=== PATIENT | male | born 1960 | race Caucasian/White ===

== ENCOUNTER 2019-04-17 18:38 | Emergency (ER) | payer BC ==
[2019-04-17 19:13] VITALS: TEMP 98.9
[2019-04-17] MEDS ORDERED: SODIUM CHLORIDE 0.9% 1,000 ML IV STA (19:58)
[2019-04-17] MEDS ORDERED: MORPHINE SULFATE 4 MG/ML SYRINGE IV STA (19:58)
[2019-04-17] MEDS ORDERED: ONDANSETRON 4 MG/2 ML VIAL IVP STA (19:58)
[2019-04-17 20:30] LABS: Appearance,Urine Clear (Clear); Basophils % (A) 0 %; Bilirubin,Urine Negative (Negative); Blood,Urine Negative (Negative); Color,Urine Yellow; Eosinophils # (A) 0.1 k/uL (0-0.7); Eosinophils % (A) 1 %; Glucose,Urine (UA) Negative (Negative); HCT 37.4 % (39.0-53.0); HGB 12.7 gm/dL (13.0-17.5); Ketones,Urine 2+ (Negative); Leukocyte Esterase,Urine Negative (Negative); Lymphocytes # (A) 1.1 k/uL (1.0-4.8); Lymphocytes % (A) 10 %; MCH 30.9 pg (25.0-35.0); Mean Platelet Volume 7.6; Monocytes # (A) 1.1 k/uL (0-1.0); Monocytes % (A) 10 %; Neutrophils # (A) 8.8 k/uL (1.3-7.7); Neutrophils % (A) 77 %; Nitrite,Urine Negative (Negative); PH, Urine 5.5 (5.0-8.0); Platelet Count 252 k/uL (150-450); Protein,Urine Negative (Negative); RBC 4.11 m/uL (4.30-5.90); RDW 12.6 % (11.5-15.5); Specific Gravity,Urine 1.016 (1.001-1.035); Urobilinogen,Urine <2.0 mg/dL (<2.0); WBC 11.4 k/uL (3.8-10.6)
[2019-04-17 20:44] LABS: ALT 21 U/L (4-49); AST 21 U/L (17-59); African American GFR (CKD) >90 (>60 ml/min/1.73 sqM); Albumin 3.7 g/dL (3.5-5.0); Alkaline Phosphatase 49 U/L (38-126); Anion Gap 12 mmol/L; Blood Urea Nitrogen 19 mg/dL (9-20); Calcium 9.5 mg/dL (8.4-10.2); Carbon Dioxide 21 mmol/L (22-30); Chloride 103 mmol/L (98-107); Glucose 100 mg/dL (74-99); Non-African American GFR(CKD) >90 (>60 ml/min/1.73 sqM); Potassium 4.2 mmol/L (3.5-5.1); Sodium 136 mmol/L (137-145); Total Bilirubin 0.7 mg/dL (0.2-1.3); Total Protein 6.3 g/dL (6.3-8.2)
--- NOTE | 2019-04-17 21:09 | CT ---
EXAMINATION TYPE: CT abdomen pelvis w con DATE OF EXAM: 04/17/2019 COMPARISON: None HISTORY: lower anterior abdominal pain CT DLP: 750.8 mGycm Automated exposure control for dose reduction was used. CONTRAST: Performed with IV Contrast, patient injected with 100 mL of Isovue 300. There is minimal subsegmental atelectasis at the lung bases. Heart size is normal. There is no perica rdial effusion. Liver shows 1 cm cyst in the anterior right lobe. Bile ducts are not dilated. Gallbladder appears nor mal. Spleen is intact. There is no evidence of pancreatic mass. Stomach appears intact. There is no adrenal mass. There is slight thickening left adrenal gland consistent with hypertrophy. Kidneys show satisfactory contrast opacification. There is no hydronephrosis. Ureters are not dilated . Abdominal aorta is atheromatous. Bladder distends smoothly. There is no inguinal hernia. Prostate i s enlarged and measures 6 cm. There is no free fluid in the pelvis. There is fat stranding around the mid sigmoid colon. There are multiple sigmoid diverticula. There is some sigmoid colon wall thickening. There is no free air. There is no ascites. There is no sign of a bowel obstruction. There is degenerative moderate disc space narrowing at L4-5 L5-S1 with spurring and osteosclerosis. T here is no lumbar compression fracture. The bony pelvis is intact. There are sclerotic foci in the right acetabulum probably bone islands. IMPRESSION: There is evidence of sigmoid diverticulitis. No drainable fluid collection. Moderate lower lumbar spine spondylotic changes.
[2019-04-17] MEDS ORDERED: HYDROmorphone 1 MG/ML 1 ML SYRINGE IVP STA (21:53)
[2019-04-17] MEDS ORDERED: NALOXONE 0.4 MG/ML 1 ML VIAL IV PRN (22:11)
[2019-04-17] MEDS ORDERED: ONDANSETRON 4 MG/2 ML VIAL IVP PRN (22:11)
[2019-04-17] MEDS ORDERED: MORPHINE SULFATE 4 MG/ML SYRINGE IV PRN (22:11)
--- NOTE | 2019-04-17 22:11 | ED ---
Abdominal Pain HPI - General Chief Complaint: Abdominal Pain Stated Complaint: Abd pain Time Seen by Provider: 04/17/19 19:28 Source: patient Mode of arrival: ambulatory Limitations: no limitations - History of Present Illness Initial Comments: The patient is a 58-year-old male with past history of coronary artery disease who presents emergency room with complaint of right lower quadrant abdominal pain. States it is present for the past 4 days and is getting worse. He describes it as a sharp shooting pain which radiates from his right flank. No h istory of similar in the past. Denies any associated hematuria, dysuria or difficulty voiding. Denies diarrhea, melanotic stools or hematochezia. Does admit to constipation which started today. No history of abdominal trauma or surgeries. No fevers or chills. Denies any nausea or vomiting. He took Motrin, Aleve and Ibuprofen at home for his symptoms and denies relief. Denies any chest pain or shortness of breath. He has been eating and drinking without difficulty. There are no alleviating, precipitating or modifying factors - Related Data Home Medications Medication Instructions Recorded Confirmed Esomeprazole Magnesium [NexIUM] 20 mg PO BID 12/13/15 12/16/15 Previous Rx's Medication Instructions Recorded Amoxicillin/Potassium Clav 1 tab PO Q12HR #14 tab 04/17/19 [Augmentin 875-125 Tablet] Allergies Allergy/AdvReac Type Severity Reaction Status Date / Time No Known Allergies Allergy Verified 04/17/19 19:13 Review of Systems ROS Statement: Those systems with pertinent positive or pertinent negative responses have been documented in the HPI. ROS Other: All systems not noted in ROS Statement are negative. Past Medical History Past Medical History: Coronary Artery Disease (CAD) History of Any Multi-Drug Resistant Organisms: None Reported Past Surgical History: Adenoidectomy, Heart Catheterization With Stent, Tonsillectomy Past Anesthesia/Blood Transfusion Reactions: No Reported Reaction Date of Last Stent Placement:: 2003 Smoking Status: Former smoker Past Alcohol Use History: Occasional Past Drug Use History: None Reported - Past Family History Mother Family Medical History: No Reported History General Exam Limitations: no limitations Course Vital Signs 04/17/19 04/17/19 19:10 22:56 Temperature 98.9 F Pulse Rate 81 98 Respiratory 18 17 Rate Blood Pressure 141/85 150/98 O2 Sat by Pulse 98 98 Oximetry Medical Decision Making - Medical Decision Making Upon arrival the patient was placed into room 8. A thorough history and physical exam was performed. Profile B was established. Patient was given 4 mg of morphine for pain control and 4 mg of Zofran for nausea. I did recommend laboratory studies. White blood cell count mildly elevated at 11.4. Urinalysis shows 2+ ketones. CT of the patient's abdomen and pelvis demonstrates sigmoid diverticulitis with no drainable fluid collection. A discuss results with the patient. He does have persistent abdominal pain and therefore is given 1 mg of Dilaudid. I discussed diagnosis, differential and treatment options. I did recommend hospital admission for the patient's persistent pain. Patient originally agrees to admission I place admission orders. I then called back into the patient's room stating that he wants to go home. Discussed that I do believe he will have difficulty with pain management at home however he continues to refuse admission. The patient was given a starter pack for Tylenol threes. He was given a dose of Rocephin and Flagyl in the ER. He'll be prescribed Augmentin. He needs to follow-up with his primary care physician for further evaluation. Return to the emergency room for any new or worsening symptoms or he agrees to hospital admission. Family is at bedside and agrees with patient's decision to leave. Patient was then discharged home in stable condition - Lab Data Result diagrams: 04/17/19 19:50 04/17/19 19:50 Lab Results 04/17/19 04/17/19 04/17/19 Range/Units 19:50 19:50 19:50 WBC 11.4 H (3.8-10.6) k/uL RBC 4.11 L (4.30-5.90) m/uL Hgb 12.7 L (13.0-17.5) gm/dL Hct 37.4 L (39.0-53.0) % MCV 91.0 (80.0-100.0) fL MCH 30.9 (25.0-35.0) pg MCHC 34.0 (31.0-37.0) g/dL RDW 12.6 (11.5-15.5) % Plt Count 252 (150-450) k/uL Neutrophils % 77 % Lymphocytes % 10 % Monocytes % 10 % Eosinophils % 1 % Basophils % 0 % Neutrophils # 8.8 H (1.3-7.7) k/uL Lymphocytes # 1.1 (1.0-4.8) k/uL Monocytes # 1.1 H (0-1.0) k/uL Eosinophils # 0.1 (0-0.7) k/uL Basophils # 0.0 (0-0.2) k/uL Sodium 136 L (137-145) mmol/L Potassium 4.2 (3.5-5.1) mmol/L Chloride 103 (98-107) mmol/L Carbon Dioxide 21 L (22-30) mmol/L Anion Gap 12 mmol/L BUN 19 (9-20) mg/dL Creatinine 0.76 (0.66-1.25) mg/dL Est GFR (CKD-EPI)AfAm >90 (>60 ml/min/1.73 sqM) Est GFR (CKD-EPI)NonAf >90 (>60 ml/min/1.73 sqM) Glucose 100 H (74-99) mg/dL Plasma Lactic Acid Luis (0.7-2.0) mmol/L Calcium 9.5 (8.4-10.2) mg/dL Total Bilirubin 0.7 (0.2-1.3) mg/dL AST 21 (17-59) U/L ALT 21 (4-49) U/L Alkaline Phosphatase 49 (38-126) U/L Total Protein 6.3 (6.3-8.2) g/dL Albumin 3.7 (3.5-5.0) g/dL Lipase 81 (23-300) U/L Urine Color Yellow Urine Appearance Clear (Clear) Urine pH 5.5 (5.0-8.0) Ur Specific Wallace 1.016 (1.001-1.035) Urine Protein Negative (Negative) Urine Glucose (UA) Negative (Negative) Urine Ketones 2+ H (Negative) Urine Blood Negative (Negative) Urine Nitrite Negative (Negative) Urine Bilirubin Negative (Negative) Urine Urobilinogen <2.0 (<2.0) mg/dL Ur Leukocyte Esterase Negative (Negative) 04/17/19 Range/Units 19:50 WBC (3.8-10.6) k/uL RBC (4.30-5.90) m/uL Hgb (13.0-17.5) gm/dL Hct (39.0-53.0) % MCV (80.0-100.0) fL MCH (25.0-35.0) pg MCHC (31.0-37.0) g/dL RDW (11.5-15.5) % Plt Count (150-450) k/uL Neutrophils % % Lymphocytes % % Monocytes % % Eosinophils % % Basophils % % Neutrophils # (1.3-7.7) k/uL Lymphocytes # (1.0-4.8) k/uL Monocytes # (0-1.0) k/uL Eosinophils # (0-0.7) k/uL Basophils # (0-0.2) k/uL Sodium (137-145) mmol/L Potassium (3.5-5.1) mmol/L Chloride (98-107) mmol/L Carbon Dioxide (22-30) mmol/L Anion Gap mmol/L BUN (9-20) mg/dL Creatinine (0.66-1.25) mg/dL Est GFR (CKD-EPI)AfAm (>60 ml/min/1.73 sqM) Est GFR (CKD-EPI)NonAf (>60 ml/min/1.73 sqM) Glucose (74-99) mg/dL Plasma Lactic Acid Luis 0.8 (0.7-2.0) mmol/L Calcium (8.4-10.2) mg/dL Total Bilirubin (0.2-1.3) mg/dL AST (17-59) U/L ALT (4-49) U/L Alkaline Phosphatase (38-126) U/L Total Protein (6.3-8.2) g/dL Albumin (3.5-5.0) g/dL Lipase (23-300) U/L Urine Color Urine Appearance (Clear) Urine pH (5.0-8.0) Ur Specific Wallace (1.001-1.035) Urine Protein (Negative) Urine Glucose (UA) (Negative) Urine Ketones (Negative) Urine Blood (Negative) Urine Nitrite (Negative) Urine Bilirubin (Negative) Urine Urobilinogen (<2.0) mg/dL Ur Leukocyte Esterase (Negative) Disposition Clinical Impression: Abdominal pain, Diverticulitis Disposition: HOME SELF-CARE Condition: Serious Instructions (If sedation given, give patient instructions): Diverticulitis (ED) Additional Instructions: I recommended hospital admission. Return to the emergency department if you agree to hospitalization admission or have any new or worsening symptoms Prescriptions: Amoxicillin/Potassium Clav [Augmentin 875-125 Tablet] 1 tab PO Q12HR #14 tab Is patient prescribed a controlled substance at d/c from ED?: No Referrals: Reece Curry MD [Primary Care Provider] - 1-2 days Time of Disposition: 22:27
[2019-04-17] MEDS ORDERED: cefTRIAXone IN SWFI 1,000 MG/10 ML SYRINGE IVP STA (22:13)
[2019-04-17] MEDS ORDERED: SODIUM CHLORIDE 0.9% 1,000 ML IV SCH (22:15)
[2019-04-17] MEDS ORDERED: metroNIDAZOLE 500 MG TAB PO STA (22:24)
[2019-04-17] MEDS ORDERED: MORPHINE SULFATE 4 MG/ML SYRINGE IVP STA (22:25)
[2019-04-17] MEDS ORDERED: ACET/COD 300 MG/30 MG STARTER PACK 6 TAB BTL PO STA (22:26)
[2019-04-17] MEDS ORDERED: metroNIDAZOLE-NS PMX 500 MG in SALINE 1 100ML.BAG IVPB SCH (22:30)
[2019-04-17 22:57] VITALS: BP 150/98; PULSE 98; RESP 17
[2019-04-18] MEDS ORDERED: PANTOPRAZOLE 40 MG TABLET PO SCH (09:00)
== END 2019-04-17 22:57 | disposition home or self-care (01) ==
LOC: EC 18:38
DX: K57.32 Diverticulitis of large intestine without perforation or abscess without bleeding (principal); R11.0 Nausea; I25.10 Atherosclerotic heart disease of native coronary artery without angina pectoris; Z87.891 Personal history of nicotine dependence; Z95.5 Presence of coronary angioplasty implant and graft
CPT/HCPCS: 36415; 80053; 83605; 83690; 85025; 81003; 74177; 99284; 96374; 96375 ×3; 96361; J2270; J2405; J0696; J1170; Q9967

== ENCOUNTER → 2019-05-15 | Outpatient (CLI) | payer BC ==
--- NOTE | 2019-05-17 11:14 | CT ---
EXAMINATION TYPE: CT abdomen pelvis w con DATE OF EXAM: 05/15/2019 COMPARISON: Prior CT 04/17/2019 HISTORY: ABD PAIN CT DLP: 652 mGycm Automated exposure control for dose reduction was used. TECHNIQUE: Helical acquisition of images from the lung bases through the pelvis have been completed. CONTRAST: Performed with Oral Contrast and with IV Contrast, patient injected with 100 mL of Isovue 300. FINDINGS: There are coronary artery calcifications present. No pleural or pericardial effusion. LUNG BASES: No significant abnormality is appreciated. AORTA: No significant abnormality is appreciated. LIVER/GB: No significant interval change is appreciated. PANCREAS: No significant abnormality is seen. SPLEEN: No significant abnormality is seen. ADRENALS: No significant interval change is seen. KIDNEYS: No significant abnormality is seen. REPRODUCTIVE ORGANS: Prostate is enlarged. BOWEL: The abnormal density within the fluid adjacent to the sigmoid colon has increased in size kath ewhat and may represent phlegmon or small abscess measuring approximately 4.4 cm. Abnormality does no t appear amenable to percutaneous drainage. Diverticular changes associated with the sigmoid colon. T here is some mass effect on the left lateral posterior margin of the urinary bladder. FREE AIR: No F ree Air visible. ASCITES: None visible. PELVIC ADENOPATHY: None visualized. RETROPERITONEAL ADENOPATHY: No Retroperitoneal Adenopathy visible. URINARY BLADDER: No significant abnormality is seen. OSSEOUS STRUCTURES: No significant abnormality is seen. IMPRESSION: DIVERTICULOSIS WITH PERICOLONIC PHLEGMON OR POSSIBLE ABSCESS DESCRIBED.
== END | disposition home or self-care (01) ==
LOC: RADCTMAIN 14:56
PROVIDERS: ATTEND Family Medicine
DX: K57.30 Diverticulosis of large intestine without perforation or abscess without bleeding (principal)
CPT/HCPCS: 74177; Q9967

== ENCOUNTER 2019-05-22 15:59 | Inpatient (IN) | payer BC ==
[2019-05-22] MEDS ORDERED: ONDANSETRON 4 MG/2 ML VIAL IVP STA (17:50)
[2019-05-22] MEDS ORDERED: MORPHINE SULFATE 4 MG/ML SYRINGE IV STA (17:50)
[2019-05-22] MEDS ORDERED: SODIUM CHLORIDE 0.9% 1,000 ML IV STA ×2 (17:50)
[2019-05-22] MEDS ORDERED: KETOROLAC 30 MG/ML 1 ML VIAL IVP STA (17:50)
[2019-05-22] MEDS ORDERED: PANTOPRAZOLE 40 MG/10 ML VIAL IVP STA (17:51)
--- NOTE | 2019-05-22 17:51 | ED ---
Abdominal Pain HPI - General Chief Complaint: Abdominal Pain Stated Complaint: Bowel issues Time Seen by Provider: 05/22/19 16:25 Source: patient, RN notes reviewed, old records reviewed Mode of arrival: ambulatory Limitations: no limitations - History of Present Illness Initial Comments: This is a 4-year-old male DF for evaluation bowel pain and left lower quadrant abdominal pain secondary to known diverticular disease diverticula and sigmoid abscess. Patient presents here with intractable pain despite 1 week of outpatient antibiotics. No fevers, patient passing golf stool without difficulty. No blood glucose of weakness, just mainly complaining of severe pain no fevers again. MD Complaint: abdominal pain (RLQ) -: days(s), week(s) Location: LLQ Radiation: LLQ Migration to: LLQ Severity: moderate Severity scale (1-10): 5 Quality: cramping, stabbing, aching Consistency: constant Improves With: nothing Worsens With: nothing Context: recent antibiotic use Associated Symptoms: nausea - Related Data Home Medications Medication Instructions Recorded Confirmed Aspirin EC [Ecotrin Low Dose] 81 mg PO DAILY 05/22/19 05/22/19 Cholecalciferol [Vitamin D3 (25 1,000 unit PO DAILY 05/22/19 05/22/19 Mcg = 1000 Iu)] Ciprofloxacin HCl [Cipro] 500 mg PO Q12HR 05/22/19 05/22/19 HYDROcodone/APAP 10-325MG [[place] 1 - 2 tab PO TID PRN 05/22/19 05/22/19 10-325] Omeprazole [PriLOSEC] 20 mg PO BID 05/22/19 05/22/19 metroNIDAZOLE [Flagyl] 500 mg PO TID 05/22/19 05/22/19 Allergies Allergy/AdvReac Type Severity Reaction Status Date / Time No Known Allergies Allergy Verified 05/22/19 21:33 Review of Systems ROS Statement: Those systems with pertinent positive or pertinent negative responses have been documented in the HPI. ROS Other: All systems not noted in ROS Statement are negative. Past Medical History Past Medical History: Coronary Artery Disease (CAD) Additional Past Medical History / Comment(s): diverticulitis History of Any Multi-Drug Resistant Organisms: None Reported Past Surgical History: Adenoidectomy, Heart Catheterization With Stent, Tonsillectomy Past Anesthesia/Blood Transfusion Reactions: No Reported Reaction Date of Last Stent Placement:: 2003 Past Psychological History: No Psychological Hx Reported Smoking Status: Former smoker Past Alcohol Use History: Occasional Past Drug Use History: None Reported - Past Family History Mother Family Medical History: No Reported History General Exam Limitations: no limitations General appearance: alert, in no apparent distress Head exam: Present: atraumatic, normocephalic, normal inspection Eye exam: Present: normal appearance, PERRL, EOMI. Absent: scleral icterus, conjunctival injection, periorbital swelling ENT exam: Present: normal exam, mucous membranes moist Neck exam: Present: normal inspection. Absent: tenderness, meningismus, lymphadenopathy Respiratory exam: Present: normal lung sounds bilaterally. Absent: respiratory distress, wheezes, rales, rhonchi, stridor Cardiovascular Exam: Present: regular rate, normal rhythm, normal heart sounds. Absent: systolic murmur, diastolic murmur, rubs, gallop, clicks GI/Abdominal exam: Present: soft, tenderness (LLQ), normal bowel sounds. Absent: distended, guarding, rebound, rigid Extremities exam: Present: normal inspection, full ROM, normal capillary refill. Absent: tenderness, pedal edema, joint swelling, calf tenderness Back exam: Present: normal inspection Neurological exam: Present: alert, oriented X3, CN II-XII intact Psychiatric exam: Present: normal affect, normal mood Skin exam: Present: warm, dry, intact, normal color. Absent: rash Course Vital Signs 05/22/19 05/22/19 16:01 19:31 Temperature 97.9 F Pulse Rate 67 83 Respiratory 20 18 Rate Blood Pressure 183/91 182/99 O2 Sat by Pulse 99 100 Oximetry - Reevaluation(s) Reevaluation #1: 05/22/19 18:57 medical record is reviewed, CT evaluation prior shows abscess - Consultations Consultation #1: spoke w Dr Dickson hinkle for consult and Dr. Gresham to admit Medical Decision Making - Medical Decision Making 58 male DF for evaluation of abdominal pain and diverticulitis. Patient also has diverticular sigmoid abscess. Patient will be admitted for IV antibiotics and surgical consult - Lab Data Result diagrams: 05/22/19 16:15 05/22/19 16:15 Lab Results 05/22/19 05/22/19 Range/Units 16:15 16:15 WBC 6.4 (3.8-10.6) k/uL RBC 4.69 (4.30-5.90) m/uL Hgb 13.8 (13.0-17.5) gm/dL Hct 43.4 (39.0-53.0) % MCV 92.6 (80.0-100.0) fL MCH 29.5 (25.0-35.0) pg MCHC 31.8 (31.0-37.0) g/dL RDW 13.2 (11.5-15.5) % Plt Count 338 (150-450) k/uL Neutrophils % 62 % Lymphocytes % 25 % Monocytes % 6 % Eosinophils % 3 % Basophils % 2 % Neutrophils # 4.0 (1.3-7.7) k/uL Lymphocytes # 1.6 (1.0-4.8) k/uL Monocytes # 0.4 (0-1.0) k/uL Eosinophils # 0.2 (0-0.7) k/uL Basophils # 0.1 (0-0.2) k/uL Sodium 137 (137-145) mmol/L Potassium 5.4 H (3.5-5.1) mmol/L Chloride 100 (98-107) mmol/L Carbon Dioxide 26 (22-30) mmol/L Anion Gap 11 mmol/L BUN 10 (9-20) mg/dL Creatinine 0.76 (0.66-1.25) mg/dL Est GFR (CKD-EPI)AfAm >90 (>60 ml/min/1.73 sqM) Est GFR (CKD-EPI)NonAf >90 (>60 ml/min/1.73 sqM) Glucose 102 H (74-99) mg/dL Calcium 10.1 (8.4-10.2) mg/dL Total Bilirubin 0.5 (0.2-1.3) mg/dL AST 37 (17-59) U/L ALT 26 (4-49) U/L Alkaline Phosphatase 43 (38-126) U/L Total Protein 7.3 (6.3-8.2) g/dL Albumin 4.4 (3.5-5.0) g/dL Amylase 103 (30-110) U/L Lipase 113 (23-300) U/L - Radiology Data Radiology results: report reviewed (CT head and pelvis positive for sigmoid abs cess), image reviewed Disposition Clinical Impression: Abdominal pain, Diverticulitis, Failure of outpatient treatment, Abscess of sigmoid colon Disposition: ADMITTED IP TO THIS HOSP Condition: Fair Is patient prescribed a controlled substance at d/c from ED?: No
[2019-05-22 18:04] LABS: Basophils # (A) 0.1 k/uL (0-0.2); Basophils % (A) 2 %; Eosinophils # (A) 0.2 k/uL (0-0.7); Eosinophils % (A) 3 %; HCT 43.4 % (39.0-53.0); HGB 13.8 gm/dL (13.0-17.5); Lymphocytes # (A) 1.6 k/uL (1.0-4.8); Lymphocytes % (A) 25 %; MCH 29.5 pg (25.0-35.0); MCHC 31.8 g/dL (31.0-37.0); MCV 92.6 fL (80.0-100.0); Mean Platelet Volume 6.8; Monocytes # (A) 0.4 k/uL (0-1.0); Monocytes % (A) 6 %; Neutrophils % (A) 62 %; Platelet Count 338 k/uL (150-450); RBC 4.69 m/uL (4.30-5.90); RDW 13.2 % (11.5-15.5); WBC 6.4 k/uL (3.8-10.6)
[2019-05-22 18:14] LABS: ALT 26 U/L (4-49); AST 37 U/L (17-59); African American GFR (CKD) >90 (>60 ml/min/1.73 sqM); Albumin 4.4 g/dL (3.5-5.0); Alkaline Phosphatase 43 U/L (38-126); Amylase 103 U/L (30-110); Anion Gap 11 mmol/L; Blood Urea Nitrogen 10 mg/dL (9-20); Calcium 10.1 mg/dL (8.4-10.2); Carbon Dioxide 26 mmol/L (22-30); Chloride 100 mmol/L (98-107); Glucose 102 mg/dL (74-99); Non-African American GFR(CKD) >90 (>60 ml/min/1.73 sqM); Sodium 137 mmol/L (137-145); Total Bilirubin 0.5 mg/dL (0.2-1.3); Total Protein 7.3 g/dL (6.3-8.2)
[2019-05-22 18:29] LABS: Potassium 5.4 mmol/L (3.5-5.1)
[2019-05-22] MEDS ORDERED: ONDANSETRON 4 MG/2 ML VIAL IVP PRN (18:53)
[2019-05-22] MEDS ORDERED: AMPICILLIN-SULBACTAM 3 GM in SODIUM CHLORIDE 0.9% 100 ML IVPB STA (18:55)
--- NOTE | 2019-05-22 19:39 | CT ---
EXAMINATION TYPE: CT abdomen pelvis w con DATE OF EXAM: 05/22/2019 COMPARISON: 05/15/2019 HISTORY: History of diverticulitis with abscess. CT DLP: 730.2 mGycm Automated exposure control for dose reduction was used. CONTRAST: Performed with IV Contrast, patient injected with 100 mL of Isovue 300. Multiple axial sections were obtained from the diaphragm to the floor the pelvis with intravenous con trast Isovue 100 mL. FINDINGS: Lung bases are clear. There is no pleural effusion. Heart size is normal. There is 1 cm cyst anterior right lobe of the liver. Gallbladder appears normal. Bile ducts are not dilated. Spleen stomach panc reas appear normal. There is no adrenal mass. Kidneys show satisfactory contrast opacification. There is no hydronephrosis. Ureters are not dilated. There is no retroperitoneal adenopathy. Abdominal aor ta is atheromatous. There are multiple loops of large bowel with fluid levels. There is fat stranding and mixed density mass posterior to the mid sigmoid colon that measures 4.2 cm and consistent with peridiverticular abscess. There are multiple sigmoid diverticula. Prostate is en larged. There is no inguinal hernia. Bladder distends smoothly. There is 5 mm anterior subluxation of L3 in relation to L4. There is narrowing of L4-5 and L5-S1 disc spaces. There is no compression fracture. Sacroiliac joints are intact. Bony pelvis is intact. IMPRESSION: Inflammatory mass in the pelvis on the left side consistent with peridiverticular abscess not changed in size compared to exam 7 days ago. Numerous large bowel fluid levels consistent with ileus and maria d rrhea.
[2019-05-22] MEDS: MORPHINE SULFATE 4 MG/ML SYRINGE IVP PRN (21:00)
[2019-05-22] MEDS: LISINOPRIL-HCTZ 10-12.5 MG 1 EACH TAB PO SCH (22:43)
[2019-05-23] MEDS: MORPHINE SULFATE 4 MG/ML SYRINGE IVP PRN ×4 (00:42→18:02)
[2019-05-23] MEDS: AMPICILLIN-SULBACTAM 3 GM in SODIUM CHLORIDE 0.9% 100 ML IVPB SCH ×4 (04:16→16:21)
[2019-05-23] MEDS: PANTOPRAZOLE 40 MG/10 ML VIAL IVP SCH (08:10)
[2019-05-23] MEDS: LISINOPRIL-HCTZ 10-12.5 MG 1 EACH TAB PO SCH ×2 (08:10→16:21)
--- NOTE | 2019-05-23 09:59 | P.GSCN ---
History of Present Illness Consult date: 05/23/19 History of present illness: 58-year-old male presents to the emergency department after he was informed by his primary care physician. He has been dealing with abdominal pain since April 17 and has had a diagnosis of diverticulitis. Initially, he was treated with an outpatient antibiotic and did have worsening pain. At that point, he did have a CT of the abdomen and pelvis that was concerning for a phlegmon in the left lower quadrant. His antibiotics were changed at that time and he was continued to be treated as an outpatient. Due to concern of continued pain, the patient was referred to the emergency department. In the emergency department, the patient was noted not to have any leukocytosis or tachycardia. CT of the abdomen and pelvis was performed that did show an evolution of the phlegmon into a 4 cm abscess. Currently, the patient does have some discomfort in the suprapubic region and left lower quadrant. He is not showing signs of peritonitis. He denies any fevers, chills, chest pain or shortness of breath. He denies any nausea or vomiting. He has been on a regular diet as an outpatient. Review of Systems All systems: negative Past Medical History Past Medical History: Coronary Artery Disease (CAD) Additional Past Medical History / Comment(s): diverticulitis History of Any Multi-Drug Resistant Organisms: None Reported Past Surgical History: Adenoidectomy, Heart Catheterization With Stent, Tonsillectomy Past Anesthesia/Blood Transfusion Reactions: No Reported Reaction Date of Last Stent Placement:: 2003 Past Psychological History: No Psychological Hx Reported Smoking Status: Former smoker Past Alcohol Use History: Occasional Past Drug Use History: None Reported - Past Family History Mother Family Medical History: No Reported History Medications and Allergies Home Medications Medication Instructions Recorded Confirmed Type Aspirin EC [Ecotrin Low Dose] 81 mg PO DAILY 05/22/19 05/22/19 History Cholecalciferol [Vitamin D3 (25 1,000 unit PO DAILY 05/22/19 05/22/19 History Mcg = 1000 Iu)] Ciprofloxacin HCl [Cipro] 500 mg PO Q12HR 05/22/19 05/22/19 History HYDROcodone/APAP 10-325MG [[place] 1 - 2 tab PO TID PRN 05/22/19 05/22/19 History 10-325] Omeprazole [PriLOSEC] 20 mg PO BID 05/22/19 05/22/19 History metroNIDAZOLE [Flagyl] 500 mg PO TID 05/22/19 05/22/19 History Allergies Allergy/AdvReac Type Severity Reaction Status Date / Time No Known Allergies Allergy Verified 05/22/19 21:33 Surgical - Exam Osteopathic Statement: *. No significant issues noted on an osteopathic structural exam other than those noted in the History and Physical/Consult. Vital Signs Temp Pulse Resp BP Pulse Ox 97.9 F 67 20 183/91 99 05/22/19 16:01 05/22/19 16:01 05/22/19 16:01 05/22/19 16:05/22/19 16:01 - General well nourished, no distress - Eyes PERRL - ENT normal mucosa, no hearing loss - Neck trachea midline - Respiratory normal respiratory effort - Abdomen Soft, some tenderness to palpation in the left lower quadrant, nondistended, no rebound, no guarding, no peritoneal signs - Psychiatric oriented to time, oriented to person, oriented to place Results - Labs 05/22/19 16:15 05/22/19 16:15 Abnormal Lab Results - Last 24 Hours (Table) 05/22/19 Range/Units 16:15 Potassium 5.4 H (3.5-5.1) mmol/L Glucose 102 H (74-99) mg/dL Diabetes panel 05/22/19 Range/Units 16:15 Sodium 137 (137-145) mmol/L Potassium 5.4 H (3.5-5.1) mmol/L Chloride 100 (98-107) mmol/L Carbon Dioxide 26 (22-30) mmol/L BUN 10 (9-20) mg/dL Creatinine 0.76 (0.66-1.25) mg/dL Glucose 102 H (74-99) mg/dL Calcium 10.1 (8.4-10.2) mg/dL AST 37 (17-59) U/L ALT 26 (4-49) U/L Alkaline Phosphatase 43 (38-126) U/L Total Protein 7.3 (6.3-8.2) g/dL Albumin 4.4 (3.5-5.0) g/dL Calcium panel 05/22/19 Range/Units 16:15 Calcium 10.1 (8.4-10.2) mg/dL Albumin 4.4 (3.5-5.0) g/dL Pituitary panel 05/22/19 Range/Units 16:15 Sodium 137 (137-145) mmol/L Potassium 5.4 H (3.5-5.1) mmol/L Chloride 100 (98-107) mmol/L Carbon Dioxide 26 (22-30) mmol/L BUN 10 (9-20) mg/dL Creatinine 0.76 (0.66-1.25) mg/dL Glucose 102 H (74-99) mg/dL Calcium 10.1 (8.4-10.2) mg/dL Adrenal panel 05/22/19 Range/Units 16:15 Sodium 137 (137-145) mmol/L Potassium 5.4 H (3.5-5.1) mmol/L Chloride 100 (98-107) mmol/L Carbon Dioxide 26 (22-30) mmol/L BUN 10 (9-20) mg/dL Creatinine 0.76 (0.66-1.25) mg/dL Glucose 102 H (74-99) mg/dL Calcium 10.1 (8.4-10.2) mg/dL Total Bilirubin 0.5 (0.2-1.3) mg/dL AST 37 (17-59) U/L ALT 26 (4-49) U/L Alkaline Phosphatase 43 (38-126) U/L Total Protein 7.3 (6.3-8.2) g/dL Albumin 4.4 (3.5-5.0) g/dL - Imaging CT scan - abdomen: report reviewed, image reviewed CT scan - pelvis: report reviewed, image reviewed (4 cm abscess noted) Assessment and Plan (1) Abscess of sigmoid colon Narrative/Plan: 58-year-old male with intra-abdominal abscess, likely secondary to d iverticulitis episode. The abscess is measured at 4 cm. I had a long discussion with the patient about the treatment modalities that could be offered. He currently is not showing any signs of peritonitis or sepsis. Due to the size of 4 cm, the patient could be a candidate for IR drainage or IV a ntibiotics for treatment. I will place a consult for IR evaluation for possibility of drainage of the abscess. There is also consult in place for infectious disease for IV antibiotics. If the patient does begin to clinically deteriorate, we will consider surgery with a Campo's procedure. The patient has voiced that he would like to avoid ostomy creation as much as possible. This is reasonable based on the patient's current clinical status. We will continue to follow the patient and provide recommendations based on his progress. Current Visit: Yes Status: Acute Code(s): K63.0 - ABSCESS OF INTESTINE SNOMED Code(s): 987683391
--- NOTE | 2019-05-23 17:02 | P.HPIM ---
History of Present Illness H&P Date: 05/23/19 Chief Complaint: Abdominal pain History of present complaint: This is a pleasant 58-year-old patient of Dr. Hope. Chronic stable medical conditions include coronary artery disease with stent in 2003, GERD, hiatal hernia. Around [place] time patient presented to the hospital with increasing abdominal pain. Computed tomography scan done did show sigmoid diverticulitis. Patient discharged on 1 week course of Augmentin. Symptoms didn't improve. But never went away. For last 10 days patient. Has been becoming significantly worse. Patient went to see his family doctor and was put on ciprofloxacin and Flagyl. Pain progressed to get worse. Also developed some nausea. No fever or chills. Some diarrhea. Decided to present to the ER. Repeat computed tomogr aphy scan is not showing peridiverticular abscess and associated ileus. Patient had some diarrhea the last few days. Admitted for the same. Review of systems: GEN.: Tired EYES: None HEENT: None NECK: None RESPIRATORY: None CARDIOVASCULAR: None GASTROINTESTINAL: As above GENITOURINARY: None MUSCULOSKELETAL: None LYMPHATICS: None HEMATOLOGICAL: None PSYCHIATRY: None NEUROLOGICAL: None. 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 . Family history: Reviewed, noncontributory to presentation Physical examination: VITAL SIGNS: 98.9, 81, 18, 141/85, 98% room air GENERAL: BMI 22.6, laying in bed not in distress. EYES: Pupils equal. Conjunctiva normal. HEENT: External appearance of nose and ears normal, oral cavity grossly normal. NECK: JVD not raised; masses not palpable. HEART: First and second heart sounds are normal; no edema. LUNGS: Respiratory rate normal; clear to auscultation. ABDOMEN: Soft, left lower quadrant tenderness, no guarding or rigidity liver spleen not palpable, no masses palpable. PSYCH: Alert and oriented x3; mood and affect normal. NEUROLOGICAL: Cranial nerves grossly intact; no facial asymmetry, power and sensation grossly intact. LYMPHATICS: No lymph nodes palpable in the axilla and neck INVESTIGATIONS, reviewed in the clinical context: White count 6.4 hemoglobin 13.8 potassium 5.4 bun 10 creatinine 0.76 Computed tomography scan abdomen-shows peridiverticular abscess Assessment: -Acute left peridiverticular abscess from diverticulitis status feel outpatient treatment, with no free a reported. Abdominal examination does show any guarding or rigidity. -Coronary artery disease with stent in 2039 -GERD -Hiatal hernia -Hyperkalemia Plan: Patient be put on a clear liquid diet. IV fluids. We will repeat electrolytes in the potassium. Lovenox for DVT prophylaxis. We'll see patient's abscess can begin went to a radiology. Otherwise patient will need IV antibiotics and may have to return for surgery down the road depending on the clinical course and findings. This was discussed at length with Dr. Forman earlier today and with the patient. Infectious disease also consulted. Past Medical History Past Medical History: Coronary Artery Disease (CAD) Additional Past Medical History / Comment(s): diverticulitis History of Any Multi-Drug Resistant Organisms: None Reported Past Surgical History: Adenoidectomy, Heart Catheterization With Stent, Tonsillectomy Past Anesthesia/Blood Transfusion Reactions: No Reported Reaction Date of Last Stent Placement:: 2003 Past Psychological History: No Psychological Hx Reported Smoking Status: Former smoker Past Alcohol Use History: Occasional Past Drug Use History: None Reported - Past Family History Mother Family Medical History: No Reported History Medications and Allergies Home Medications Medication Instructions Recorded Confirmed Type Aspirin EC [Ecotrin Low Dose] 81 mg PO DAILY 05/22/19 05/22/19 History Cholecalciferol [Vitamin D3 (25 1,000 unit PO DAILY 05/22/19 05/22/19 History Mcg = 1000 Iu)] Ciprofloxacin HCl [Cipro] 500 mg PO Q12HR 05/22/19 05/22/19 History HYDROcodone/APAP 10-325MG [[place] 1 - 2 tab PO TID PRN 05/22/19 05/22/19 History 10-325] Omeprazole [PriLOSEC] 20 mg PO BID 05/22/19 05/22/19 History metroNIDAZOLE [Flagyl] 500 mg PO TID 05/22/19 05/22/19 History Allergies Allergy/AdvReac Type Severity Reaction Status Date / Time No Known Allergies Allergy Verified 05/22/19 21:33 Physical Exam Vitals: Vital Signs Temp Pulse Pulse Resp BP BP Pulse Ox 05/23/19 08:30 68 16 05/23/19 07:00 97.7 F 68 16 131/78 98 05/23/19 00:45 98.4 F 68 16 155/70 98 05/22/19 22:10 150/90 05/22/19 22:03 174/104 05/22/19 20:56 170/80 05/22/19 20:46 97.8 F 61 16 99 05/22/19 19:31 83 18 182/99 100 05/22/19 16:01 97.9 F 67 20 183/91 99 Intake and Output 05/22/19 05/23/19 05/23/19 22:59 06:59 14:59 Intake Total 800 Output Total 200 Balance 600 Intake: Intake, IV Titration 800 Amount Sodium Chloride 0.9% 1, 800 000 ml @ 100 mls/hr IV . Q10H [facility] Rx#:[id number] Output: Urine 200 Other: # Voids 1 2 1 Weight 65.544 kg Results CBC & Chem 7: 05/22/19 16:15 05/22/19 16:15 Labs: Abnormal Lab Results - Last 24 Hours (Table) 05/22/19 Range/Units 16:15 Potassium 5.4 H (3.5-5.1) mmol/L Glucose 102 H (74-99) mg/dL Thrombosis Risk Factor Assmnt - Choose All That Apply Any of the Below Risk Factors Present?: No Other Risk Factors: Yes Each Risk Factor Represents 2 Points: Age 61-74 years Other congenital or acquired thrombophilia - If yes, enter type in comment: No Thrombosis Risk Factor Assessment Total Risk Factor Score: 2 Thrombosis Risk Factor Assessment Level: Low Risk
[2019-05-23 18:25] LABS: African American GFR (CKD) >90 (>60 ml/min/1.73 sqM); Anion Gap 5 mmol/L; Blood Urea Nitrogen 6 mg/dL (9-20); Calcium 8.4 mg/dL (8.4-10.2); Carbon Dioxide 27 mmol/L (22-30); Chloride 103 mmol/L (98-107); Glucose 75 mg/dL (74-99); Non-African American GFR(CKD) >90 (>60 ml/min/1.73 sqM); Potassium 4.1 mmol/L (3.5-5.1); Sodium 135 mmol/L (137-145)
[2019-05-23] MEDS: LACTATED RINGERS 1,000 ML IV SCH (19:57)
[2019-05-23] MEDS ORDERED: ACETAMINOPHEN TAB 325 MG TAB PO PRN (20:24)
[2019-05-24] MEDS: AMPICILLIN-SULBACTAM 3 GM in SODIUM CHLORIDE 0.9% 100 ML IVPB SCH ×5 (00:21→23:27)
[2019-05-24] MEDS: MORPHINE SULFATE 4 MG/ML SYRINGE IVP PRN ×5 (00:22→22:17)
[2019-05-24] MEDS: LACTATED RINGERS 1,000 ML IV SCH ×3 (05:50→18:16)
[2019-05-24 06:53] LABS: Basophils % (A) 0 %; Eosinophils # (A) 0.2 k/uL (0-0.7); Eosinophils % (A) 3 %; HCT 38.8 % (39.0-53.0); HGB 12.3 gm/dL (13.0-17.5); Lymphocytes # (A) 1.1 k/uL (1.0-4.8); Lymphocytes % (A) 19 %; MCH 29.3 pg (25.0-35.0); MCHC 31.8 g/dL (31.0-37.0); MCV 92.1 fL (80.0-100.0); Mean Platelet Volume 6.7; Monocytes # (A) 0.5 k/uL (0-1.0); Monocytes % (A) 8 %; Neutrophils % (A) 69 %; Platelet Count 330 k/uL (150-450); RBC 4.21 m/uL (4.30-5.90); RDW 12.8 % (11.5-15.5); WBC 5.9 k/uL (3.8-10.6)
[2019-05-24 07:38] LABS: ALT 18 U/L (4-49); AST 20 U/L (17-59); African American GFR (CKD) >90 (>60 ml/min/1.73 sqM); Albumin 2.7 g/dL (3.5-5.0); Alkaline Phosphatase 30 U/L (38-126); Anion Gap 6 mmol/L; Blood Urea Nitrogen 5 mg/dL (9-20); C Reactive Protein 9.6 mg/L (<10.0); Calcium 8.3 mg/dL (8.4-10.2); Carbon Dioxide 26 mmol/L (22-30); Chloride 105 mmol/L (98-107); Glucose 85 mg/dL (74-99); Non-African American GFR(CKD) >90 (>60 ml/min/1.73 sqM); Potassium 4.4 mmol/L (3.5-5.1); Sodium 137 mmol/L (137-145); Total Bilirubin 0.4 mg/dL (0.2-1.3)
--- NOTE | 2019-05-24 08:44 | P.PN ---
Subjective Progress Note Date: 05/24/19 Patient seen and examined at bedside. No acute events. Denies nausea or vomiting. Denies any significant changes in abdominal pain. Objective - Vital Signs Vital signs: Vital Signs Temp 98.4 F 05/24/19 07:56 Pulse 71 05/24/19 07:56 Resp 18 05/24/19 07:56 BP 161/92 05/24/19 07:56 Pulse Ox 95 05/24/19 07:56 Intake & Output 05/23/19 05/24/19 05/24/19 18:59 06:59 18:59 Intake Total 600 1000 Output Total 200 350 Balance 400 650 Intake: Intake, IV Titration 100 1000 Amount Ampicillin-Sulbactam 3 gm 100 In Sodium Chloride 0.9% 100 ml @ 200 mls/hr IVPB Q6H [facility] Rx#:[id number] Ampicillin-Sulbactam 3 gm 100 In Sodium Chloride 0.9% 100 ml @ 200 mls/hr IVPB Q8H [facility] Rx#:[id number] Lactated Ringers 1,000 ml 900 @ 100 mls/hr IV .Q10H [facility] Rx#:[id number] Oral 500 Output: Urine 200 350 Other: Voiding Method Toilet # Voids 1 1 - Constitutional General appearance: Present: cooperative, no acute distress - Respiratory Details: No difficulty with respiration - Gastrointestinal Gastrointestinal Comment(s): Soft, mild tenderness to suprapubic and left lower quadrant, nondistended, no rebound, no guarding - Psychiatric Psychiatric: Present: A&O x's 3 - Labs CBC & Chem 7: 05/24/19 06:15 05/24/19 06:15 Labs: Abnormal Lab Results - Last 24 Hours (Table) 05/23/19 05/24/19 05/24/19 Range/Units 17:33 06:15 06:15 RBC 4.21 L (4.30-5.90) m/uL Hgb 12.3 L (13.0-17.5) gm/dL Hct 38.8 L (39.0-53.0) % Sodium 135 L (137-145) mmol/L BUN 6 L 5 L (9-20) mg/dL Calcium 8.3 L (8.4-10.2) mg/dL Alkaline Phosphatase 30 L (38-126) U/L Total Protein 5.0 L (6.3-8.2) g/dL Albumin 2.7 L (3.5-5.0) g/dL Microbiology - Last 24 Hours (Table) 05/22/19 18:05 Blood Culture - Preliminary Blood No Growth after 24 hours Assessment and Plan (1) Abscess of sigmoid colon Narrative/Plan: 05/23 58-year-old male with intra-abdominal abscess, likely secondary to diverticulitis episode. The abscess is measured at 4 cm. I had a long discussion with the patient about the treatment modalities that could be offered. He currently is not showing any signs of peritonitis or sepsis. Due to the size of 4 cm, the patient could be a candidate for IR drainage or IV antibiotics for treatment. I will place a consult for IR evaluation for possibility of drainage of the abscess. There is also consult in place for infectious disease for IV antibiotics. If the patient does begin to clinically deteriorate, we will consider surgery with a Campo's procedure. The patient has voiced that he would like to avoid ostomy creation as much as possible. This is reasonable based on the patient's current clinical status. We will continue to follow the patient and provide recommendations based on his progre ss. 05/24 Case was discussed in depth with the patient's admitting physician and infectious disease. We are waiting IR recommendations on candidacy for IR drainage. Patient may for IV antibiotics. ID is following closely. Okay for full liquid diet today. Current Visit: Yes Status: Acute Code(s): K63.0 - ABSCESS OF INTESTINE SNOMED Code(s): 296770548
--- NOTE | 2019-05-24 09:21 | CONS ---
CONSULTATION DATE OF SERVICE: 05/23/2019 REASON FOR CONSULTATION: Abdominal abscess. HISTORY OF PRESENT ILLNESS: The patient is a 58-year-old male apparently started having some problem with left lower abdominal pain around April 17. The patient said he was seen in the ER and has been diagnosed with diverticulitis and he was treated with a week course of oral Augmentin. Apparently the patient did have overall improvement in his symptoms and subsequently did not have any specific instruction afterwards. About a week ago, the patient started having a pain in the left lower abdominal area again. The patient described the pain to be dull aching to sharp with intensity that has progressively gotten worse over the next few days to almost 10 out of 10 with some associated nausea but no vomiting and did have diarrhea but no blood or mucus in the stools. With persistent symptoms, the patient did present to the hospital. On arrival to the ER, the patient was afebrile. The patient's white count was normal. The patient did have a CT of abdomen and pelvis completed which did show inflammatory mostly in the pelvis on the left side consistent with peridiverticular abscess. completed 7 days ago. Numerous large bowel fluid loops consistent with ileus and diarrhea. The patient has been admitted to the hospital and was started on Unasyn 3 g q.8 hours. Infectious Disease was consulted for further recommendations regarding antibiotic therapy. REVIEW OF SYSTEMS: Positive points have been mentioned in the HPI. The rest of the systems are negative. PAST MEDICAL HISTORY: Coronary artery disease, gastroesophageal reflux disease, diverticulitis, hiatal hernia. PAST SURGICAL HISTORY: Past surgical history of adenoidectomy, PTCA with stent, and tonsillectomy. SOCIAL HISTORY: Remote history of smoking. Occasionally drinks. No drug use. FAMILY HISTORY: No pertinent findings noticed. ALLERGIES: No known drug allergies. MEDICATIONS: The patient is currently on Unasyn 3 g q.8 hours, he is on Zestoretic, lactated Ringers, morphine sulfate, Zofran, Protonix, and Tylenol. PHYSICAL EXAMINATION: Blood pressure 137/86, pulse of 72, temperature 97.7. He is 97% on room air. General description is a middle-aged male lying in bed in no distress. No tachypnea or respiration muscles of accessory use. HEENT: Shows no pallor or scleral icterus. Oral mucosa membranes dry. No pharyngeal erythema or thrush. NECK: Trachea central. No thyromegaly. LUNGS: Unlabored breathing. Clear to auscultation anteriorly. No wheeze or crackles. HEART S1, S2. Regular rate and rhythm. ABDOMEN: Soft, mildly tender. No guarding. No rigidity. No organomegaly. EXTREMITIES: No edema of the feet. SKIN examination: No rash or mass palpable. NEUROLOGICAL: Patient is awake, alert, oriented times three. Mood and affect normal. LABS: Hemoglobin is 13.8, white count 6.4, BUN of 6, creatinine 0.75. DIAGNOSTIC IMPRESSION AND PLAN: Patient with abdominal pain in this patient who did have an episode of diverticulitis for the last month that has not resolved with oral Augmentin or Cipro and Flagyl. Now developing of an abscess likely from enteric gram-negative both aerobes and anaerobes. PLAN: 1. Await CT-guided aspirate of the fluid collection, which should be sent for culture to guide further antibiotic therapy. 2. We will adjust dose of Unasyn to 3 g q.6 hours. 3. We will follow up on clinical condition and culture to further adjust medication if needed. 4. Family at the bedside. Their questions and concerns were answered. MMODL / IJN: [id number] /
[2019-05-24] MEDS: PANTOPRAZOLE 40 MG/10 ML VIAL IVP SCH (09:41)
--- NOTE | 2019-05-24 11:09 | P.PN ---
Subjective 58-year-old male admitted for that related to some diverticular abscess and patient is presently on Zosyn and was severely was consulted for the perc utaneous drain placement for his small diverticular abscess patient is much better although he is constipated patient was started on Toradol to avoid morphine. Constitutional: Denied any fatigue denied any fever. Cardio vascular: denied any chest pain, palpitations Gastrointestinal denied any nausea vomiting Pulmonary: Denied any shortness of breath cough Neurologic denied any new focal deficits All inpatient medications were reviewed and appropriate changes in these medications as dictated in the interval history and assessment and plan. Objective - Vital Signs Vital signs: Vital Signs Temp 98.4 F 05/24/19 07:56 Pulse 71 05/24/19 07:56 Resp 18 05/24/19 07:56 BP 161/92 05/24/19 07:56 Pulse Ox 95 05/24/19 07:56 Intake & Output 05/23/19 05/24/19 05/24/19 18:59 06:59 18:59 Intake Total 600 1000 640 Output Total 200 350 Balance 400 650 640 Intake: Intake, IV Titration 100 1000 Amount Ampicillin-Sulbactam 3 gm 100 In Sodium Chloride 0.9% 100 ml @ 200 mls/hr IVPB Q6H [facility] Rx#:[id number] Ampicillin-Sulbactam 3 gm 100 In Sodium Chloride 0.9% 100 ml @ 200 mls/hr IVPB Q8H [facility] Rx#:[id number] Lactated Ringers 1,000 ml 900 @ 100 mls/hr IV .Q10H [facility] Rx#:[id number] Oral 500 640 Output: Urine 200 350 Other: Voiding Method Toilet # Voids 1 1 - Exam PHYSICAL EXAMINATION: GENERAL: The patient is alert and oriented x3, not in any acute distress. Well developed, well nourished. HEENT: Pupils are round and equally reacting to light. EOMI. No scleral icterus. No conjunctival pallor. Normocephalic, atraumatic. No pharyngeal erythema. No thyromegaly. CARDIOVASCULAR: S1 and S2 present. No murmurs, rubs, or gallops. PULMONARY: Chest is clear to auscultation, no wheezing or crackles. ABDOMEN: Soft, minimal tenderness in the left lower quadrant, nondistended, normoactive bowel sounds. No palpable organomegaly. MUSCULOSKELETAL: No joint swelling or deformity. EXTREMITIES: No cyanosis, clubbing, or pedal edema. NEUROLOGICAL: Gross neurological examination did not reveal any focal deficits. SKIN: No rashes. - Labs CBC & Chem 7: 05/24/19 06:15 05/24/19 06:15 Labs: Abnormal Lab Results - Last 24 Hours (Table) 05/23/19 05/24/19 05/24/19 Range/Units 17:33 06:15 06:15 RBC 4.21 L (4.30-5.90) m/uL Hgb 12.3 L (13.0-17.5) gm/dL Hct 38.8 L (39.0-53.0) % Sodium 135 L (137-145) mmol/L BUN 6 L 5 L (9-20) mg/dL Calcium 8.3 L (8.4-10.2) mg/dL Alkaline Phosphatase 30 L (38-126) U/L Total Protein 5.0 L (6.3-8.2) g/dL Albumin 2.7 L (3.5-5.0) g/dL Microbiology - Last 24 Hours (Table) 05/22/19 18:05 Blood Culture - Preliminary Blood No Growth after 24 hours Assessment and Plan Plan: -Diverticullitis with the diverticular abscess: Possible percutaneous drainage continue with the Unasyn -Coronary artery disease Gastroesophageal reflux disease -Hyperkalemia which resolved
[2019-05-24] MEDS: LISINOPRIL-HCTZ 10-12.5 MG 1 EACH TAB PO SCH (11:36)
[2019-05-24] MEDS: KETOROLAC 30 MG/ML 1 ML VIAL IVP PRN (13:15)
[2019-05-25] MEDS: KETOROLAC 30 MG/ML 1 ML VIAL IVP PRN (01:14)
[2019-05-25] MEDS: LACTATED RINGERS 1,000 ML IV SCH (04:01)
[2019-05-25] MEDS: MORPHINE SULFATE 4 MG/ML SYRINGE IVP PRN ×3 (04:01→13:46)
[2019-05-25] MEDS: AMPICILLIN-SULBACTAM 3 GM in SODIUM CHLORIDE 0.9% 100 ML IVPB SCH ×2 (05:34→12:45)
[2019-05-25] MEDS: PANTOPRAZOLE 40 MG/10 ML VIAL IVP SCH (07:34)
[2019-05-25] MEDS ORDERED: LISINOPRIL 20 MG TAB PO SCH (09:00)
--- NOTE | 2019-05-25 10:33 | PN ---
PROGRESS NOTE DATE OF SERVICE: 05/24/2019 REASON FOR FOLLOWUP: Abdominal abscess from perforated sigmoid diverticulitis. INTERVAL HISTORY: The patient is currently afebrile. The patient has been breathing comfortably. The patient denies any chest pain, shortness of breath or cough. No nausea, vomiting and abdominal pain is currently controlled with pain medication. PHYSICAL EXAMINATION: Blood pressure 167/90 with a pulse of 76, temperature 98.5. He is 100% on room air. General description is a middle-aged male lying in bed in no distress. Respiratory system: Unlabored breathing. Clear to auscultation anteriorly. Heart S1, S2. Regular rate and rhythm. Abdomen soft. No tenderness. No guarding. No rigidity. Extremities: No edema of the feet. LABS: Hemoglobin is 12.7, white count 5.9, BUN of 5, creatinine 0.75. Blood culture has been negative so far. DIAGNOSTIC IMPRESSION AND PLAN: Patient with acute recurrent diverticulitis with concern for a small abscess awaiting CT-guided drainage of the same. The patient is covered with Unasyn to continue adjusting the antibiotic based on the culture report. Continue supportive care. MMODL / IJN: [id number] /
--- NOTE | 2019-05-25 14:28 | P.PN ---
Subjective Progress Note Date: 05/25/19 Patient seen and examined at bedside. No acute events. Abdominal pain unchanged. Objective - Vital Signs Vital signs: Vital Signs Temp 97.8 F 05/25/19 07:00 Pulse 63 05/25/19 08:00 Resp 18 05/25/19 08:00 BP 169/90 05/25/19 07:00 Pulse Ox 96 05/25/19 07:00 Intake & Output 05/24/19 05/25/19 05/25/19 18:59 06:59 18:59 Intake Total 990 296 Output Total 350 Balance 640 296 Intake: Oral 990 296 Output: Urine 350 Other: Voiding Method Toilet Toilet Toilet # Voids 1 1 1 # Bowel Movements 0 - Constitutional General appearance: Present: cooperative, no acute distress - Gastrointestinal Gastrointestinal Comment(s): Soft, left lower quadrant and suprapubic tenderness, nondistended, no rebound, no guarding - Psychiatric Psychiatric: Present: A&O x's 3 - Labs CBC & Chem 7: 05/24/19 06:15 05/24/19 06:15 Labs: Microbiology - Last 24 Hours (Table) 05/22/19 18:05 Blood Culture - Preliminary Blood No Growth after 48 hours Assessment and Plan (1) Abscess of sigmoid colon Narrative/Plan: 05/23 58-year-old male with intra-abdominal abscess, likely secondary to diverticulitis episode. The abscess is measured at 4 cm. I had a long discussion with the patient about the treatment modalities that could be offered. He currently is not showing any signs of peritonitis or sepsis. Due to the size of 4 cm, the patient could be a candidate for IR drainage or IV antibiotics for treatment. I will place a consult for IR evaluation for possibility of drainage of the abscess. There is also consult in place for infectious disease for IV antibiotics. If the patient does begin to clinically deteriorate, we will consider surgery with a Campo's procedure. The patient has voiced that he would like to avoid ostomy creation as much as possible. This is reasonable based on the patient's current clinical status. We will continue to follow the patient and provide recommendations based on his progres s. 05/24 Case was discussed in depth with the patient's admitting physician and infectious disease. We are waiting IR recommendations on candidacy for IR drainage. Patient may for IV antibiotics. ID is following closely. Okay for full liquid diet today. 2/3 Nursing did inform me that there is no plan for IR drainage based on interventional radiologist evaluation. Infectious disease to plan outpatient IV antibiotics. Patient will likely require future sigmoid colectomy, however will need IV antibiotics prior to any intervention. He is to follow-up as an outpatient for surgical planning in the future. Current Visit: Yes Status: Acute Code(s): K63.0 - ABSCESS OF INTESTINE SNOMED Code(s): 398042662
[2019-05-25 15:10] VITALS: BP 138/81; PULSE 71; RESP 16; TEMP 97.4
--- NOTE | 2019-05-25 20:27 | PN ---
PROGRESS NOTE DATE OF SERVICE: 05/25/2019 REASON FOR FOLLOWUP: Sigmoid diverticulitis with abscess. INTERVAL HISTORY: The patient was seen on rounds this morning. The patient has been afebrile, has been breathing comfortably. The patient's abdominal pain has improved, controlled with pain medication. No nausea, vomiting or diarrhea. PHYSICAL EXAMINATION: Blood pressure is 138/81 with a pulse of 71, temperature 97.4. He is 96% on room air. General description is a middle-aged male lying in bed in no distress. RESPIRATORY SYSTEM: Unlabored breathing. Clear to auscultation anteriorly. HEART: S1, S2. Regular rate and rhythm. ABDOMEN: Soft. No tenderness. LABS/IMAGING: No new labs have been obtained today. CT was reviewed with the radiologist. Abscess was not amenable to CT-guided drainage. DIAGNOSTIC IMPRESSION AND PLAN: Patient with acute sigmoid diverticulitis, failing outpatient oral antibiotic, with a component of abscess. The patient's antibiotic has been adjusted to Rocephin 2 grams daily and oral Flagyl 500 mg p.o. q.8 hours. Continue for 2 weeks with plan for a CT of abdomen and pelvis before stopping his antibiotics. His questions and concerns were answered. MMODL / IJN: [id number] /
--- NOTE | 2019-05-26 08:53 | P.DS ---
Providers Date of admission: 05/22/19 18:54 Expected date of discharge: 05/26/19 Attending physician: Kurt Dyson Consults: 05/22/19 20:16 Consult Physician Routine Consulting Provider: Mercedes Forman Consult Reason/Comments: TicItis Do you want consulting provider notified?: Yes 05/23/19 09:49 Consult Physician Routine Consulting Provider: Rick Werner Consult Reason/Comments: intra-abdominal abscess Do you want consulting provider notified?: Yes Primary care physician: Risa [facility] Course: Final diagnosis -Diverticullitis with the diverticular abscess -Coronary artery disease -Gastroesophageal reflux disease -Hyperkalemia Discharge disposition Patient is being discharged in stable condition with guarded prognosis to home and will continue with IV antibiotic therapy in the outpatient setting. Patient will also follow-up with Dr. Forman in 1-2 weeks. Total time taken is 35 minutes. History of present illness 58-year-old male admitted for that related to some diverticular abscess and patient is presently on Zosyn and surgery was consulted for the percutaneous drain placement for his small diverticular abscess patient is much better althou gh he is constipated patient was started on Toradol to avoid morphine. 05/25/2019 Patient was seen by interventional radiology and was told that the possible diverticular abscess may not need draining and should continue on antibiotics via IV in the outpatient setting and follow-up with surgery in 2-3 weeks for reevaluation. Infectious disease was following. A midline was scheduled and patient was placed on Rocephin 2 g daily. Patient will continue this course for at least 2 weeks in the outpatient setting. Case management arranged for home infusions in the outpatient setting. Patient will follow-up with Dr. Forman in 2-3 weeks as discussed. Patient states that he would really like to go home today. Currently patient's condition is stable and is ready for discharge today. Patient denies any chest pain, shortness of breath, or palpitations. Patient is afebrile. Patient denies any nausea or vomiting and is tolerating diet. Discussed with the patient about slowly advancing diet as tolerated over the next few days. Patient continues to have some mild abdominal discomfort and has been taking [place] with relief. On exam vital signs are stable. Temp is 97.4F, pulse is 71, respirations are 16, blood pressure is 138/81, oxygen saturation is 96% on room air. Cardio S1, S2 are present. Respiratory system is clear to auscultation. Abdomen is soft with mild tenderness noted. Nervous system shows no focal deficits. Please refer to medication reconciliation sheet for list of medications. Patient Condition at Discharge: Fair Plan - Discharge Summary Discharge Rx Participant: Yes New Discharge Prescriptions: New Pantoprazole [Protonix] 40 mg PO DAILY 30 Days #30 tablet. Lisinopril [Zestril] 20 mg PO DAILY 30 Days #30 tab metroNIDAZOLE [Flagyl] 500 mg PO TID #42 tab cefTRIAXone [Rocephin] 2,000 mg IVP Q24HR #14 vial HYDROcodone/APAP 10-325MG [[place] 10-325] 1 tab PO Q4HR PRN 3 Days #18 tab PRN Reason: Pain Continue Omeprazole [PriLOSEC] 20 mg PO BID Cholecalciferol [Vitamin D3 (25 Mcg = 1000 Iu)] 1,000 unit PO DAILY Discontinued Aspirin EC [Ecotrin Low Dose] 81 mg PO DAILY metroNIDAZOLE [Flagyl] 500 mg PO TID HYDROcodone/APAP 10-325MG [[place] 10-325] 1 - 2 tab PO TID PRN PRN Reason: Pain Ciprofloxacin HCl [Cipro] 500 mg PO Q12HR Discharge Medication List Cholecalciferol [Vitamin D3 (25 Mcg = 1000 Iu)] 1,000 unit PO DAILY 05/22/19 [History] Omeprazole [PriLOSEC] 20 mg PO BID 05/22/19 [History] HYDROcodone/APAP 10-325MG [[place] 10-325] 1 tab PO Q4HR PRN 3 Days #18 tab 05/25/19 [Rx] Lisinopril [Zestril] 20 mg PO DAILY 30 Days #30 tab 05/25/19 [Rx] Pantoprazole [Protonix] 40 mg PO DAILY 30 Days #30 tablet. 05/25/19 [Rx] cefTRIAXone [Rocephin] 2,000 mg IVP Q24HR #14 vial 05/25/19 [Rx] metroNIDAZOLE [Flagyl] 500 mg PO TID #42 tab 05/25/19 [Rx] Follow up Appointment(s)/Referral(s): Risa Baltazar DO [Primary Care Provider] - 05/27/19 2:40 pm [facility], [NON-STAFF] - [facility],Infusion [NON-STAFF] - Mercedes Forman DO [Doctor of Osteopathic Medicine] - 06/01/19 11:30 am Rick Werner MD [STAFF PHYSICIAN] - 1 Week Activity/Diet/Wound Care/Special Instructions: Activity Limited until follow-up Continue with antibiotics as discussed with infectious disease Follow-up with primary care provider upon discharge Follow-up with surgery as discussed and scheduled Continue current diet [facility] will deliver IV supplies by noon on 05/26/2019. [facility] will visit after that to initiate teaching and first dose of IV antibiotics. Both companies should call you to confirm. Discharge Disposition: HOME WITH HOME HEALTH SERVICES
[2019-05-26] MEDS ORDERED: PANTOPRAZOLE 40 MG TABLET PO SCH (09:00)
== END 2019-05-25 17:35 | disposition home health service (06) | DRG 392 ==
LOC: EC 15:59 → 4SSUR 18:54
PROVIDERS: ADMIT Hospitalist; ATTEND Hospitalist
PROC: 05HC33Z Insertion of Infusion Device into Left Basilic Vein, Percutaneous Approach (ICD-10-PCS; principal; 2019-05-25 13:50)
DX: K57.20 Diverticulitis of large intestine with perforation and abscess without bleeding (principal); K21.9 Gastro-esophageal reflux disease without esophagitis; I25.10 Atherosclerotic heart disease of native coronary artery without angina pectoris; E87.5 Hyperkalemia; K44.9 Diaphragmatic hernia without obstruction or gangrene; Z79.82 Long term (current) use of aspirin; Z87.891 Personal history of nicotine dependence; Z95.5 Presence of coronary angioplasty implant and graft
CPT/HCPCS: 36410; 36415; 74177; 76937; 80048; 80053; 82150; 83690; 85025; 86140; 87040; 96361; 96365; 96375; 99285

== ENCOUNTER → 2019-06-08 | Outpatient (CLI) | payer BC ==
--- NOTE | 2019-06-08 19:18 | CT ---
EXAMINATION TYPE: CT abdomen pelvis w con DATE OF EXAM: 06/08/2019 COMPARISON: 05/22/2019 HISTORY: diverticulitis, abd abcess followup CT DLP: 602 mGycm Automated exposure control for dose reduction was used. CONTRAST: Performed with IV Contrast, patient injected with 100 mL of Isovue 300. Multiple axial sections were obtained from the diaphragm to the floor the pelvis with oral and intrav enous contrast. Lung bases are clear. There is no pleural effusion. Heart size is normal. There is 1 cm cyst anterior right lobe of the liver. Spleen is normal. There is no pancreatic mass. Gallbladder appears normal. The bile ducts are not dilated. The stomach appears normal. There is no adrenal mass. Kidneys show satisfactory contrast opacification. There is no hydronephrosi s. There is normal contrast opacification of the small bowel. There are numerous sigmoid diverticula. Th ere is mild wall thickening of the sigmoid colon. There is 3 cm irregular fluid collection adjacent t o the mid sigmoid colon consistent with peridiverticular abscess. There is no sign of free air. Bladd er distends smoothly. There is no inguinal hernia. Lumbar vertebra have fairly normal alignment. Ther e is a minimal degenerative first-degree L3-4 spondylolisthesis. There is no compression fracture. Th ere is narrowing and vacuum disc and osteosclerosis at L4-5 and L5-S1. Impression there is peridiverticular abscess at the mid sigmoid colon not changed in size compared to last exam. There is decrease in the small bowel distention compared to last exam.
== END | disposition home or self-care (01) ==
LOC: RADCTMAIN 16:43
PROVIDERS: ATTEND Internal Medicine Infectious Disease
DX: K63.0 Abscess of intestine (principal); K63.89 Other specified diseases of intestine
CPT/HCPCS: 74177; Q9967

== ENCOUNTER 2019-07-06 10:21 | Inpatient (IN) | payer BC ==
[2019-07-06] MEDS ORDERED: SODIUM CHLORIDE 0.9% 1,000 ML IV STA (10:30)
[2019-07-06] MEDS ORDERED: ONDANSETRON 4 MG/2 ML VIAL IVP STA (10:48)
[2019-07-06] MEDS ORDERED: HYDROmorphone 0.5 MG/0.5 ML SYRINGE IVP STA (10:48)
[2019-07-06 10:55] LABS: Basophils # (A) 0.1 k/uL (0-0.2); Basophils % (A) 1 %; Eosinophils # (A) 0.1 k/uL (0-0.7); Eosinophils % (A) 2 %; HGB 14.9 gm/dL (13.0-17.5); Lymphocytes # (A) 1.2 k/uL (1.0-4.8); Lymphocytes % (A) 32 %; MCH 28.9 pg (25.0-35.0); MCHC 31.7 g/dL (31.0-37.0); MCV 91.2 fL (80.0-100.0); Mean Platelet Volume 7.3; Monocytes # (A) 0.3 k/uL (0-1.0); Monocytes % (A) 9 %; Neutrophils % (A) 54 %; Platelet Count 274 k/uL (150-450); RBC 5.16 m/uL (4.30-5.90); RDW 13.7 % (11.5-15.5); WBC 3.6 k/uL (3.8-10.6)
[2019-07-06 10:57] LABS: Appearance,Urine Clear (Clear); Bilirubin,Urine Negative (Negative); Blood,Urine Negative (Negative); Color,Urine Light Yellow; Glucose,Urine (UA) Negative (Negative); Ketones,Urine Negative (Negative); Leukocyte Esterase,Urine Negative (Negative); Nitrite,Urine Negative (Negative); PH, Urine 6.5 (5.0-8.0); Protein,Urine Negative (Negative); Specific Gravity,Urine 1.006 (1.001-1.035); Urobilinogen,Urine <2.0 mg/dL (<2.0)
[2019-07-06 11:08] LABS: ALT 27 U/L (4-49); AST 30 U/L (17-59); African American GFR (CKD) >90 (>60 ml/min/1.73 sqM); Albumin 4.5 g/dL (3.5-5.0); Alkaline Phosphatase 43 U/L (38-126); Amylase 116 U/L (30-110); Anion Gap 8 mmol/L; Blood Urea Nitrogen 17 mg/dL (9-20); Carbon Dioxide 28 mmol/L (22-30); Chloride 100 mmol/L (98-107); Glucose 97 mg/dL (74-99); Non-African American GFR(CKD) >90 (>60 ml/min/1.73 sqM); Potassium 4.1 mmol/L (3.5-5.1); Sodium 136 mmol/L (137-145); Total Bilirubin 0.3 mg/dL (0.2-1.3)
--- NOTE | 2019-07-06 11:34 | CT ---
EXAMINATION TYPE: CT abdomen pelvis w con DATE OF EXAM: 07/06/2019 COMPARISON: 06/08/2019 HISTORY: Lower abdominal pain, history of recent diverticulitis and abscess CT DLP: 642.9 mGycm Automated exposure control for dose reduction was used. CONTRAST: CT scan of the abdomen pelvis is performed with IV Contrast, patient injected with 100 mL of Isovue 3 00. FINDINGS- LUNG BASES- No significant abnormality is appreciated. LIVER/GB-there are 2 small hypodensities within the liver too small to characterize but stable and th erefore likely related to cysts. Trace amount of fluid is seen adjacent to the liver.. PANCREAS- No gross abnormality is seen. SPLEEN- No gross abnormality is seen. ADRENALS- No gross abnormality is seen. KIDNEYS/BLADDER- no hydronephrosis nephrolithiasis or renal mass. BOWEL-there is abnormal rotation of the mesentery. There is mesenteric edema. 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 There are few dilated fluid-filled bowel loops. Correlate clinic ally for ischemic bowel. Diverticulosis is seen in the pelvis. Small amount of free fluid is seen in the pelvis.. Density along the medial margin of the liver on axial image 21 may represent a nondisten ded portion of the bowel or stomach. Peptic ulcer disease or gastritis not excluded LYMPH NODES- No greater than 1cm abdominal or pelvic lymph nodes areappreciated. OSSEOUS STRUCTURES-hypertrophic and degenerative change of the spine. Grade 1 anterolisthesis L3 on L 4.. Arthropathy of the hips noted. Sclerosis involving the acetabulum is nonspecific. Multilevel luis l stenosis noted. OTHER- prostate is markedly enlarged correlate for PSA. A prostate nodule suggested. There remains a fluid collection in the left lower pelvis similar in size the previous exam measuring 2.5 cm compati ble with a peridiverticular abscess. No significant interval change in size. IMPRESSION- 1. There is twisting of the mesenteric pedicle and mesenteric edema highly suggestive of mesenteric v olvulus. Ischemic bowel in the differential diagnosis. There are number of fluid-filled small bowel l oops and there is a small amount of free fluid in the abdomen and pelvis. 2. Stable left pelvic peridiverticular abscess measuring 2.5 cm. 3. Correlate with PSA for prostate enlargement and prostate nodule. Prostate malignancy in the differ ential diagnosis. 4. Diverticulosis. There is abnormal attenuation along the medial margin of the liver which may repre sent nondistended portions of bowel or stomach. Correlate clinically to exclude gastritis or peptic u lcer disease
[2019-07-06] MEDS ORDERED: HYDROmorphone 0.5 MG/0.5 ML SYRINGE IVP PRN (12:10)
[2019-07-06] MEDS ORDERED: NALOXONE 0.4 MG/ML 1 ML VIAL IV PRN ×2 (12:10→17:42)
[2019-07-06] MEDS ORDERED: ONDANSETRON 4 MG/2 ML VIAL IVP PRN (12:10)
--- NOTE | 2019-07-06 12:10 | ED ---
Abdominal Pain HPI - General Chief Complaint: Abdominal Pain Stated Complaint: lower abd pain Time Seen by Provider: 07/06/19 10:27 Source: patient Mode of arrival: ambulatory Limitations: no limitations - History of Present Illness Initial Comments: 59-year-old male presents emergency department for increasing abdominal pain. Patient states that he's been dealing with diverticulitis with abscess. They have been treating with IV antibiotics. He states he stopped last week pain increased on Saturday until today. Patient was advised to come to him by his surgeon and infectious disease physician. Patient denies any fevers chills patient states his abdominal exam essentially normal he does this is increase in lower abdominal pain. No chest pain or shortness breath - Related Data Home Medications Medication Instructions Recorded Confirmed Cholecalciferol [Vitamin D3 (25 1,000 unit PO DAILY 05/22/19 05/22/19 Mcg = 1000 Iu)] Omeprazole [PriLOSEC] 20 mg PO BID 05/22/19 05/22/19 Previous Rx's Medication Instructions Recorded HYDROcodone/APAP 10-325MG [[place] 1 tab PO Q4HR PRN 3 Days #18 tab 05/25/19 10-325] Lisinopril [Zestril] 20 mg PO DAILY 30 Days #30 tab 05/25/19 Pantoprazole [Protonix] 40 mg PO DAILY 30 Days #30 05/25/19 tablet. cefTRIAXone [Rocephin] 2,000 mg IVP Q24HR #14 vial 05/25/19 metroNIDAZOLE [Flagyl] 500 mg PO TID #42 tab 05/25/19 Allergies Allergy/AdvReac Type Severity Reaction Status Date / Time No Known Allergies Allergy Verified 07/06/19 10:22 Review of Systems ROS Statement: Those systems with pertinent positive or pertinent negative responses have been documented in the HPI. ROS Other: All systems not noted in ROS Statement are negative. Past Medical History Past Medical History: Coronary Artery Disease (CAD) Additional Past Medical History / Comment(s): diverticulitis History of Any Multi-Drug Resistant Organisms: None Reported Past Surgical History: Adenoidectomy, Heart Catheterization With Stent, Tonsillectomy Past Anesthesia/Blood Transfusion Reactions: No Reported Reaction Date of Last Stent Placement:: 2003 Past Psychological History: No Psychological Hx Reported Smoking Status: Former smoker Past Alcohol Use History: Occasional Past Drug Use History: None Reported - Past Family History Mother Family Medical History: No Reported History General Exam Limitations: no limitations General appearance: alert, in no apparent distress Head exam: Present: atraumatic, normocephalic, normal inspection Respiratory exam: Present: normal lung sounds bilaterally. Absent: respiratory distress, wheezes, rales, rhonchi, stridor Cardiovascular Exam: Present: regular rate, normal rhythm, normal heart sounds. Absent: systolic murmur, diastolic murmur, rubs, gallop, clicks GI/Abdominal exam: Present: soft, distended, tenderness, guarding, normal bowel sounds. Absent: rebound, rigid Back exam: Absent: CVA tenderness (R), CVA tenderness (L) Course Vital Signs 07/06/19 10:22 Temperature 97.4 F L Pulse Rate 75 Respiratory 18 Rate Blood Pressure 173/87 O2 Sat by Pulse 98 Oximetry Medical Decision Making - Medical Decision Making Case discussed with Dr. Forman patient will be admitted. Patient be continued on antibiotics at this time. - Lab Data Result diagrams: 07/06/19 10:40 07/06/19 10:40 Lab Results 07/06/19 07/06/19 07/06/19 Range/Units 10:40 10:40 10:40 WBC 3.6 L (3.8-10.6) k/uL RBC 5.16 (4.30-5.90) m/uL Hgb 14.9 (13.0-17.5) gm/dL Hct 47.0 (39.0-53.0) % MCV 91.2 (80.0-100.0) fL MCH 28.9 (25.0-35.0) pg MCHC 31.7 (31.0-37.0) g/dL RDW 13.7 (11.5-15.5) % Plt Count 274 (150-450) k/uL Neutrophils % 54 % Lymphocytes % 32 % Monocytes % 9 % Eosinophils % 2 % Basophils % 1 % Neutrophils # 2.0 (1.3-7.7) k/uL Lymphocytes # 1.2 (1.0-4.8) k/uL Monocytes # 0.3 (0-1.0) k/uL Eosinophils # 0.1 (0-0.7) k/uL Basophils # 0.1 (0-0.2) k/uL Sodium 136 L (137-145) mmol/L Potassium 4.1 (3.5-5.1) mmol/L Chloride 100 (98-107) mmol/L Carbon Dioxide 28 (22-30) mmol/L Anion Gap 8 mmol/L BUN 17 (9-20) mg/dL Creatinine 0.86 (0.66-1.25) mg/dL Est GFR (CKD-EPI)AfAm >90 (>60 ml/min/1.73 sqM) Est GFR (CKD-EPI)NonAf >90 (>60 ml/min/1.73 sqM) Glucose 97 (74-99) mg/dL Plasma Lactic Acid Luis (0.7-2.0) mmol/L Calcium 9.0 (8.4-10.2) mg/dL Total Bilirubin 0.3 (0.2-1.3) mg/dL AST 30 (17-59) U/L ALT 27 (4-49) U/L Alkaline Phosphatase 43 (38-126) U/L Total Protein 7.0 (6.3-8.2) g/dL Albumin 4.5 (3.5-5.0) g/dL Amylase 116 H (30-110) U/L Lipase 148 (23-300) U/L Urine Color Light Yellow Urine Appearance Clear (Clear) Urine pH 6.5 (5.0-8.0) Ur Specific [place] 1.006 (1.001-1.035) Urine Protein Negative (Negative) Urine Glucose (UA) Negative (Negative) Urine Ketones Negative (Negative) Urine Blood Negative (Negative) Urine Nitrite Negative (Negative) Urine Bilirubin Negative (Negative) Urine Urobilinogen <2.0 (<2.0) mg/dL Ur Leukocyte Esterase Negative (Negative) 07/06/19 Range/Units 10:40 WBC (3.8-10.6) k/uL RBC (4.30-5.90) m/uL Hgb (13.0-17.5) gm/dL Hct (39.0-53.0) % MCV (80.0-100.0) fL MCH (25.0-35.0) pg MCHC (31.0-37.0) g/dL RDW (11.5-15.5) % Plt Count (150-450) k/uL Neutrophils % % Lymphocytes % % Monocytes % % Eosinophils % % Basophils % % Neutrophils # (1.3-7.7) k/uL Lymphocytes # (1.0-4.8) k/uL Monocytes # (0-1.0) k/uL Eosinophils # (0-0.7) k/uL Basophils # (0-0.2) k/uL Sodium (137-145) mmol/L Potassium (3.5-5.1) mmol/L Chloride (98-107) mmol/L Carbon Dioxide (22-30) mmol/L Anion Gap mmol/L BUN (9-20) mg/dL Creatinine (0.66-1.25) mg/dL Est GFR (CKD-EPI)AfAm (>60 ml/min/1.73 sqM) Est GFR (CKD-EPI)NonAf (>60 ml/min/1.73 sqM) Glucose (74-99) mg/dL Plasma Lactic Acid Luis 1.2 (0.7-2.0) mmol/L Calcium (8.4-10.2) mg/dL Total Bilirubin (0.2-1.3) mg/dL AST (17-59) U/L ALT (4-49) U/L Alkaline Phosphatase (38-126) U/L Total Protein (6.3-8.2) g/dL Albumin (3.5-5.0) g/dL Amylase (30-110) U/L Lipase (23-300) U/L Urine Color Urine Appearance (Clear) Urine pH (5.0-8.0) Ur Specific [place] (1.001-1.035) Urine Protein (Negative) Urine Glucose (UA) (Negative) Urine Ketones (Negative) Urine Blood (Negative) Urine Nitrite (Negative) Urine Bilirubin (Negative) Urine Urobilinogen (<2.0) mg/dL Ur Leukocyte Esterase (Negative) Disposition Clinical Impression: Abdominal pain, Volvulus, Abscess of sigmoid colon, Diverticulitis Disposition: ADMITTED IP TO THIS [facility] Condition: Fair Referrals: Risa Baltazar DO [Primary Care Provider] - 1-2 days
[2019-07-06] MEDS ORDERED: PIPERACILLIN-TAZOBACTAM 3.375 GM in SODIUM CHLORIDE 0.9% 100 ML IVPB STA (12:21)
[2019-07-06] MEDS: SODIUM CHLORIDE 0.9% 1,000 ML IV SCH ×2 (12:40→21:40)
[2019-07-06] MEDS: HYDROmorphone 1 MG/ML 1 ML SYRINGE IVP PRN ×2 (12:47→15:04)
[2019-07-06] MEDS ORDERED: IV FLUID CONTINUATION 1,000 ML IV ONE (15:46)
[2019-07-06] MEDS ORDERED: ONDANSETRON 4 MG/2 ML VIAL IVP ONE (16:07)
[2019-07-06] MEDS ORDERED: DEXAMETHASONE SOD PHOSPHATE 10 MG/ML 1 ML VIAL IV ONE (16:07)
[2019-07-06] MEDS ORDERED: MIDAZOLAM 2 MG/2 ML VIAL IVP ONE (16:47)
[2019-07-06] MEDS ORDERED: HEPARIN SODIUM,PORCINE 5,000 UNIT/ML 1 ML VIAL SQ ONE (17:01)
[2019-07-06] MEDS ORDERED: fentaNYL (PF) 50 MCG/ML 2 ML AMP ONE (17:11)
[2019-07-06] MEDS ORDERED: SUCCINYLCHOLINE CHLORIDE 100 MG/5 ML SYR IV ONE (17:11)
[2019-07-06] MEDS ORDERED: MIDAZOLAM 2 MG/2 ML VIAL ONE (17:11)
[2019-07-06] MEDS ORDERED: ROCURONIUM BROMIDE 10 MG/ML 5 ML VIAL IV ONE (17:11)
[2019-07-06] MEDS ORDERED: PROPOFOL 10 MG/ML 20 ML VIAL IV ONE (17:11)
[2019-07-06] MEDS ORDERED: LIDOCAINE 1% INJ 10MG/ML (20 ML MDV) ONE (17:11)
[2019-07-06] MEDS ORDERED: PHENYLEPHRINE-0.9% NACL SYG 1 MG/10 ML SYRINGE ONE (17:11)
[2019-07-06] MEDS ORDERED: ROPIVACAINE 250 MG, HYDROMORPHONE (PF) 5 MG in SODIUM CHLORIDE 0.9% 200 ML EPIDURAL PRN (17:42)
[2019-07-06] MEDS ORDERED: LACTATED RINGERS 1,000 ML IV ONE ×2 (18:05→19:44)
--- NOTE | 2019-07-06 20:34 | P.OP ---
Date of Procedure: 07/06/19 Preoperative Diagnosis: Diverticulitis with abscess formation Postoperative Diagnosis: Purulent diverticulitis Procedure(s) Performed: Campo's procedure Anesthesia: TAJA Surgeon: Mercedes Forman Pathology: other (Sigmoid colon, small bowel lesion, cultures) Condition: stable Disposition: floor Indications for Procedure: 59-year-old male with history of diverticular abscess. He was initially treated as an outpatient with IV antibiotics. However, it appears that he had failed this therapy and began having increased amount of abdominal pain. On arrival to the emergency department, CT of the abdomen and pelvis was performed and abscess remained along with concern for volvulus. The patient was significantly tender and secondary to this plan was for exploratory laparotomy with likely Campo's procedure. The patient was expanded the risks, benefits and alternatives to the procedure and did provide consent prior to attending the operating suite. Operative Findings: Inflamed sigmoid colon with densely adhered surrounding scar tissue Purulent pockets throughout the abdomen Pedunculated lesion on the small bowel Description of Procedure: The patient was brought into the operating suite and placed into supine position on the operating table. Sedation was provided by anesthesia and the patient underwent endotracheal intubation. The patient was then prepped and draped in regular sterile fashion and Kohler catheter was placed under sterile conditions. A midline incision was made and dissection was carried to the fascia. The fascia was incised along the length of the incision. On immediate entry into the abdomen, purulent material was noted. Culture was then taken. The fluid did appear milk-like in nature. At this point, the small bowel was examined as to the CT concern of volvulus. The small bowel was noted to be of normal caliber. There was a portion of the small bowel that did have a lesion that was pedunculated. It was hard to the touch and not clearly identifiable. Secondary to this, this lesion was ligated by placing a 3-0 silk suture both distally and proximally. The site of ligation was then imbricated using 3-0 Vicryl Lembert sutures. The bowel did not appear ischemic whatsoever. Bookwalter retractor was placed and the bowel was reduced in the right upper quadrant. The pelvis was then examined and the sigmoid colon and distal colon were noted to be significantly scarred. A proximal point of transection was noted and the bowel was transected with a purple load 60 mm stapler. Dissection was then carried along the mesentery towards the anticipated distal aspect. Meticulous dissection was performed to free the colon from the surrounding scarred and adhered tissue. Once an appropriate distal margin was noted, this bowel was resected using a 60 mm purple load stapler. This was then sent as specimen. The abscess pocket was clearly identified and was drained during this process. A second culture was taken of the pelvic fluid. At this point, the remaining distal colon was noted to need some mild dissection along the white line of Toldt for ostomy creation. This was performed. An anticipated ostomy site was noted in the left abdomen. A circular incision was made and dissection was carried to the fascia. The fascia was incised in a cruciate manner. The muscle was split and the peritoneum was entered. The anticipated stoma was then delivered through this site. Copious muss irrigation was then placed into the abdomen. A SURAJ drain was placed into the pelvis and secured using a 3-0 nylon suture. The midline incision was closed with a running looped PDS suture. The ostomy was then matured in standard Emily fashion. Sterile dressing was applied. The patient was awakened in the operating suite and taken to postanesthesia care unit in stable condition.
[2019-07-06] MEDS ORDERED: LEVOFLOXACIN 500MG-D5W PMX 500 MG in DEXTROSE/WATER 1 100ML.BAG IVPB SCH (21:00)
[2019-07-06] MEDS: FAMOTIDINE 20 MG/2 ML VIAL IV SCH (21:40)
[2019-07-06] MEDS: metroNIDAZOLE-NS PMX 500 MG in SALINE 1 100ML.BAG IVPB SCH (23:17)
[2019-07-07] MEDS: PIPERACILLIN-TAZOBACTAM 3.375 GM in SODIUM CHLORIDE 0.9% 100 ML IVPB SCH ×3 (00:41→18:10)
[2019-07-07] MEDS: METOCLOPRAMIDE 5 MG/ML 2 ML VIAL IVP SCH ×5 (00:44→23:58)
[2019-07-07] MEDS: HEPARIN SODIUM,PORCINE 5,000 UNIT/ML 1 ML VIAL SQ SCH ×4 (00:45→23:58)
[2019-07-07 08:02] LABS: ALT 19 U/L (4-49); AST 23 U/L (17-59); African American GFR (CKD) >90 (>60 ml/min/1.73 sqM); Albumin 2.9 g/dL (3.5-5.0); Alkaline Phosphatase 25 U/L (38-126); Anion Gap 5 mmol/L; Blood Urea Nitrogen 15 mg/dL (9-20); Calcium 7.8 mg/dL (8.4-10.2); Carbon Dioxide 25 mmol/L (22-30); Chloride 106 mmol/L (98-107); Glucose 104 mg/dL (74-99); Non-African American GFR(CKD) 88 (>60 ml/min/1.73 sqM); Potassium 4.4 mmol/L (3.5-5.1); Sodium 136 mmol/L (137-145); Total Bilirubin 0.6 mg/dL (0.2-1.3); Total Protein 5.1 g/dL (6.3-8.2)
[2019-07-07 08:03] LABS: Basophils % (A) 0 %; Eosinophils % (A) 1 %; HCT 36.5 % (39.0-53.0); Lymphocytes # (A) 0.7 k/uL (1.0-4.8); Lymphocytes % (A) 10 %; MCH 29.4 pg (25.0-35.0); MCHC 32.1 g/dL (31.0-37.0); MCV 91.7 fL (80.0-100.0); Mean Platelet Volume 7.6; Monocytes # (A) 0.5 k/uL (0-1.0); Monocytes % (A) 8 %; Neutrophils # (A) 5.7 k/uL (1.3-7.7); Neutrophils % (A) 81 %; Platelet Count 240 k/uL (150-450); RBC 3.99 m/uL (4.30-5.90); RDW 13.7 % (11.5-15.5); WBC 7.1 k/uL (3.8-10.6)
[2019-07-07 08:07] LABS: HGB 11.7 gm/dL (13.0-17.5)
[2019-07-07] MEDS: FAMOTIDINE 20 MG/2 ML VIAL IV SCH ×2 (09:45→20:57)
[2019-07-07] MEDS: metroNIDAZOLE-NS PMX 500 MG in SALINE 1 100ML.BAG IVPB SCH ×3 (09:46→23:58)
--- NOTE | 2019-07-07 10:57 | P.PN ---
Subjective Progress Note Date: 07/07/19 Patient seen and examined at bedside. Complaining of some abdominal soreness. Denies nausea or vomiting. Tolerating clear liquid diet. Kohler catheter in place. Epidural in place. Objective - Vital Signs Vital signs: Vital Signs Temp 98.4 F 07/07/19 04:56 Pulse 99 07/07/19 04:56 Resp 16 07/07/19 04:56 BP 111/67 07/07/19 04:56 Pulse Ox 98 07/07/19 04:56 Intake & Output 07/06/19 07/07/19 07/07/19 18:59 06:59 18:59 Intake Total 1900 827.5 Output Total 1725 Balance 1900 -897.5 Weight 59.874 kg Intake: IV 1900 827.5 Output: Drainage 125 Right Abdomen 125 Urine 1400 Uretheral (Kohler) 900 Estimated Blood Loss 200 Other: Voiding Method Indwelling Catheter - Constitutional General appearance: Present: cooperative, no acute distress - Gastrointestinal Gastrointestinal Comment(s): Soft, appropriate tenderness, nondistended, no rebound, no guarding, ostomy site is pink and patent with no output, midline incision with surgical dressing in pl mayran. - Musculoskeletal Musculoskeletal: Present: generalized weakness - Psychiatric Psychiatric: Present: A&O x's 3 - Labs CBC & Chem 7: 07/07/19 07:06 07/07/19 07:06 Labs: Abnormal Lab Results - Last 24 Hours (Table) 07/06/19 07/06/19 07/07/19 Range/Units 10:40 10:40 07:06 WBC 3.6 L (3.8-10.6) k/uL RBC 3.99 L (4.30-5.90) m/uL Hgb 11.7 L D (13.0-17.5) gm/dL Hct 36.5 L (39.0-53.0) % Lymphocytes # 0.7 L (1.0-4.8) k/uL Sodium 136 L (137-145) mmol/L Glucose (74-99) mg/dL Calcium (8.4-10.2) mg/dL Alkaline Phosphatase (38-126) U/L Total Protein (6.3-8.2) g/dL Albumin (3.5-5.0) g/dL Amylase 116 H (30-110) U/L 07/07/19 Range/Units 07:06 WBC (3.8-10.6) k/uL RBC (4.30-5.90) m/uL Hgb (13.0-17.5) gm/dL Hct (39.0-53.0) % Lymphocytes # (1.0-4.8) k/uL Sodium 136 L (137-145) mmol/L Glucose 104 H (74-99) mg/dL Calcium 7.8 L (8.4-10.2) mg/dL Alkaline Phosphatase 25 L (38-126) U/L Total Protein 5.1 L (6.3-8.2) g/dL Albumin 2.9 L (3.5-5.0) g/dL Amylase (30-110) U/L Microbiology - Last 24 Hours (Table) 07/06/19 20:10 Gram Stain - Preliminary Abdomen Wound Culture - Preliminary 07/06/19 20:10 Gram Stain - Preliminary Other - Other Wound Culture - Preliminary 07/06/19 20:10 Anaerobic Culture - Preliminary Other - Other 07/06/19 20:10 Anaerobic Culture - Preliminary Abdomen Assessment and Plan Plan: Postoperative day #1, exploratory laparotomy, Campo's procedure Continue clear liquid diet at this time, await further bowel function Continue epidural, patient is still having some abdominal soreness, will communicate with anesthesia for increasing epidural dosage Continue Kohler catheter while epidural is in place Increase activity, this was discussed with the patient Continue incentive spirometry Await cultures and ID recommendations
[2019-07-07] MEDS: SODIUM CHLORIDE 0.9% 1,000 ML IV SCH ×2 (14:45→16:43)
--- NOTE | 2019-07-07 15:16 | CDI ---
Documentation Clarification Form Date: 07/07/2019 03:13:25 PM From: Kellen Antonio RN, CCDS Admit Date: 07/06/2019 12:11:00 PM Patient Name: Karan Pavon Visit Number: [id number] ATTENTION: The Clinical Documentation Specialists (CDI) and [facility] Coding Staff appreciate your assistance in clarifying documentation. Please respond to the clarification below the line at the bottom and electronically sign. The CDI & [facility] Coding staff will review the response and follow-up if needed. Please note: Queries are made part of the Legal Health Record. If you have any questions, please contact the author of this message via ITS. Dr. Mercedes Gregory declining Hgb and Hct is noted after surgery and lacks specificity to accurately reflect your patients severity of condition and clarification is needed. History/Risk Factors: Diverticulitis Clinical indicators: 07/05 Op Note: Diverticulitis with abscess formation and purulent Diverticulitis with a Campo's procedure. Hemoglobin: Pre-op 14.9 Post-op 11.7 Hematocrit: Pre-op 47 Post-op 36.5 Surgical EBL: 200 cc Treatment: Monitoring labs Heparin SQ 5000 units Q 8 hrs 1L IVF Bolus 0.9% NS followed by 100 cc/hr In order to capture the severity of condition, please clarify the clinical significance of the Hgb and Hct decline and etiology if known: Acute blood loss anemia (specify if due to operative procedure and if expected or unexpected) Acute on chronic blood loss anemia Chronic blood loss anemia Iron deficiency anemia Hemolytic anemia Drug induced anemia Anemia due to malignancy Nutritional anemia Anemia of chronic kidney disease Unable to determine Other, please specify Hgb/Hct decline likely a finding of acute on chronic blood loss anemia, but unable to determine for sure as I do not have access to patient's baseline Hgb. (Last Revision: January 2017) MTDD
[2019-07-07] MEDS: PANTOPRAZOLE 40 MG TABLET PO SCH (20:57)
[2019-07-07] MEDS: ROPIVACAINE 250 MG, HYDROMORPHONE (PF) 5 MG in SODIUM CHLORIDE 0.9% 200 ML EPIDURAL PRN (20:58)
--- NOTE | 2019-07-07 21:27 | CONS ---
CONSULTATION DATE OF SERVICE: 07/07/2019 REASON FOR CONSULTATION: Advice regarding CAD, multiple other medical issues requested by Dr. Forman. HISTORY OF PRESENT ILLNESS: This 59-year-old gentleman with a past medical history of CAD, GERD, history of diverticulitis, history of CAD/stent being followed by Dr. Baltazar in the outpatient is complaining of abdominal pain. The patient admitted with diverticulitis and possible abscess formation perforation. The patient underwent a Chrissy's procedure and colostomy. Please refer to Dr. Forman's detailed operative group report for the same. The patient being closely monitored. There is no history of chest pain, palpitations, headache, loss of consciousness, seizures at this time. Multiple abnormalities noted in the CT scan. PAST MEDICAL HISTORY: CAD, chest pain, GERD, history of diverticulitis. MEDICATIONS: Prior to admission include: 1. Flagyl 500 mg p.o. t.i.d. 2. Prilosec 20 mg b.i.d. 3. [place] 10 mg q.4 p.r.n. 4. Vitamin D3 1 daily. 5. Ceftin 500 mg p.o. b.i.d. ALLERGIES: None. FAMILY HISTORY: No history of heart disease or strokes in the family. SOCIAL HISTORY: No history of smoking. Occasional alcohol intake. REVIEW OF SYSTEMS: ENT: No diminished vision. No diminished hearing. CARDIOVASCULAR: No angina or palpitations. RESPIRATION as mentioned earlier. GASTROINTESTINAL: As mentioned earlier. no dysuria or hematuria. NERVOUS SYSTEMS: No numbness or weakness. ALLERGY/IMMUNOLOGY: No asthma or hayfever. MUSCULOSKELETAL as mentioned earlier. HEMATOLOGY/ONCOLOGY: No evidence of anemia. ENDOCRINE: No history of diabetes or hypothyroidism. CONSTITUTIONAL: As mentioned earlier. DERMATOLOGY: Negative. RHEUMATOLOGY: Negative. PSYCHIATRY: As mentioned earlier. PHYSICAL EXAMINATION: Alert and oriented x3. Pulse is 76. Pulse 76. Blood pressure 124/69, respirations 17, temperature 97.8, pulse ox 98% on room air. HEENT: Conjunctivae normal. NECK: No JVD. CARDIOVASCULAR: S1, S2 muffled. RESPIRATORY SYSTEM: Breath sounds diminished at the bases. Scattered rhonchi and crackles. ABDOMEN: Soft, nontender. No mass palpable. LEGS: No edema. No swelling. NERVOUS SYSTEM: Higher functions as mentioned. Moves all 4 limbs. No focal motor or sensory deficits. LYMPHATICS: No lymph nodes palpable in the neck, axillae or groin. SKIN: No ulcer, no rashes and no bleeding. JOINTS: No active deforming arthropathy. LABS: At this time shows: WBC 7.7, hemoglobin 7.9, sodium 136. Other labs are noted. Chest x- ray noted. ASSESSMENT: 1. Acute diverticulitis with possible abscess formation status post Chrissy's procedure. 2. Mild leukopenia. 3. Mild anemia. 4. Hyponatremia. 5. Mild hypoalbuminemia with mild protein calorie malnutrition. 6. History of coronary artery disease/stent. 7. History of chest pain. 8. History of gastroesophageal reflux disease. 9. History of diverticulitis and diverticular abscess. 10.History of low back pain/degenerative joint disease. 11.History of uvulopalatopharyngoplasty. 12.FULL CODE. RECOMMENDATIONS AND DISCUSSION: This 59-year-old gentleman who presented with multiple complex medical issues, we will monitor the patient closely, continue the current medications, management and symptomatic treatment. Otherwise, at this time, I recommend continue with empiric antibiotics. Closely follow with surgery. Resume the home medications. DVT prophylaxis. Further recommendations to follow. A copy for this dictation being forwarded to Dr. Baltazar who is the primary care physician. MMVERONICAL / BREANNEN: [id number] /
--- NOTE | 2019-07-07 23:57 | P.CONS ---
History of Present Illness - Reason for Consult Consult date: 07/07/19 abdominal abscess Requesting physician: Mercedes Forman - Chief Complaint abdominal pain x 3 days - History of Present Illness Patient is a 59-year male with a past medical history significant for sigmoid diverticulitis with prior diverticular abscess noted the patient has been on IV antibiotic therapy until last Saturday subsequently patient has been switched over to oral Ceftin and Flagyl with the patient was taking patient started having a problem with abdominal pain on Saturday pain has been mostly in the lower abdominal area that subsequently got worse for the next few days to the point it was unbearable on Saturday morning when the patient called the office patient was advised to go to the hospital for acute severe abdominal pain patient also complaining of nausea had did have one episode of vomiting and some chills on presentation the hospital the patient was evaluated by the ER physician on arrival to the ER patient was afebrile his white count was mildly low at 3.6 kidney function was normal UA was negative patient did have a CT of abdominal pelvis completed which did shows peridiverticular abscess remained to be the same at 2.5 cm however there was a question of abnormal rotation of the mesentery mesenteric edema 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 Review of Systems Positive point has been mentioned in HPI rest of the systems are negative Past Medical History Past Medical History: Coronary Artery Disease (CAD), Chest Pain / Angina, GERD/Reflux Additional Past Medical History / Comment(s): Recent diverticulitis then diverticular abscess, low back pain/DDD History of Any Multi-Drug Resistant Organisms: None Reported Past Surgical History: Adenoidectomy, Heart Catheterization With Stent, T onsillectomy Additional Past Surgical History / Comment(s): UVPPP, EGD, colonoscopy, L ring finger injury with surgical repair, midline Past Anesthesia/Blood Transfusion Reactions: No Reported Reaction Date of Last Stent Placement:: 2003 Smoking Status: Never smoker - Past Family History Mother Family Medical History: No Reported History Additional Family Medical History / Comment(s): Mother is 94 yrs old and healthy Father Family Medical History: CVA/TIA Additional Family Medical History / Comment(s): Father of a CVA at the age of 67yrs. Medications and Allergies Home Medications Medication Instructions Recorded Confirmed Type Cholecalciferol [Vitamin D3 (25 1,000 unit PO DAILY 05/22/19 07/06/19 History Mcg = 1000 Iu)] Omeprazole [PriLOSEC] 20 mg PO BID 05/22/19 07/06/19 History HYDROcodone/APAP 10-325MG [[place] 1 tab PO Q4HR PRN 3 Days #18 tab 05/25/19 07/06/19 Rx 10-325] metroNIDAZOLE [Flagyl] 500 mg PO TID #42 tab 05/25/19 07/06/19 Rx Cefuroxime Axetil [Ceftin] 500 mg PO BID 07/06/19 07/06/19 History Allergies Allergy/AdvReac Type Severity Reaction Status Date / Time No Known Allergies Allergy Verified 07/06/19 15:59 Physical Exam Vitals: Vital Signs Temp Pulse Resp BP Pulse Ox 07/07/19 11:50 97.8 F 76 17 124/69 98 07/07/19 04:56 98.4 F 99 16 111/67 98 07/07/19 00:36 89 139/79 96 07/06/19 23:29 92 145/88 98 07/06/19 23:06 92 144/88 97 07/06/19 22:36 89 134/69 97 07/06/19 22:21 97.6 F 87 152/91 96 07/06/19 22:06 85 148/85 99 07/06/19 21:51 97.6 F 92 20 145/81 97 07/06/19 21:00 73 18 131/74 98 07/06/19 20:46 71 18 132/74 97 07/06/19 20:31 76 18 131/75 100 07/06/19 20:20 98 F 87 18 140/82 95 07/06/19 15:58 98.4 F 66 16 174/89 98 07/06/19 14:20 97.9 F 61 18 165/89 99 07/06/19 13:41 97.6 F 81 18 144/83 99 Intake and Output 07/06/19 07/07/19 07/07/19 22:59 06:59 14:59 Intake Total 2727.5 Output Total 745 980 Balance 1982.5 -980 Intake: IV 2727.5 Output: Drainage 45 80 Right Abdomen 45 80 Urine 500 900 Uretheral (Kohler) 900 Estimated Blood Loss 200 Other: Voiding Method Indwelling Catheter Indwelling Catheter GENERAL DESCRIPTION: Middle-aged male lying in bed, no distress. No tachypnea or accessory muscle of respiration use. HEENT: Shows Pallor , no scleral icterus. Oral mucous membrane is dry. NECK: Trachea central, no thyromegaly. LUNGS: Unlabored breathing. Clear to auscultation anteriorly. No wheeze or crackle. HEART: S1, S2, regular rate and rhythm. ABDOMEN: Soft, mild lower quadrant tenderness , guarding or rigidity EXTREMITIES: No edema of feet. SKIN: No rash, no masses palpable. NEUROLOGICAL: The patient is awake, alert, oriented x3, mood and affect normal Results CBC & Chem 7: 07/07/19 07:06 07/07/19 07:06 Labs: Abnormal Lab Results - Last 24 Hours (Table) 07/07/19 07/07/19 Range/Units 07:06 07:06 RBC 3.99 L (4.30-5.90) m/uL Hgb 11.7 L D (13.0-17.5) gm/dL Hct 36.5 L (39.0-53.0) % Lymphocytes # 0.7 L (1.0-4.8) k/uL Sodium 136 L (137-145) mmol/L Glucose 104 H (74-99) mg/dL Calcium 7.8 L (8.4-10.2) mg/dL Alkaline Phosphatase 25 L (38-126) U/L Total Protein 5.1 L (6.3-8.2) g/dL Albumin 2.9 L (3.5-5.0) g/dL Microbiology - Last 24 Hours (Table) 07/06/19 10:53 Blood Culture - Preliminary Blood No Growth after 24 hours 07/06/19 20:10 Gram Stain - Preliminary Abdomen Wound Culture - Preliminary 07/06/19 20:10 Gram Stain - Preliminary Other - Other Wound Culture - Preliminary 07/06/19 20:10 Anaerobic Culture - Preliminary Other - Other 07/06/19 20:10 Anaerobic Culture - Preliminary Abdomen Assessment and Plan Assessment: patient with acute sigmoid diverticulitis with peridiverticular abscess in this patient who has failed medical therapy subsequently has been taken to the OR and is status post abdominal washout and Campo's procedure will need to cover for possible resistant gram-negative both aerobes and anaerobes (1) Abscess of sigmoid colon Current Visit: Yes Status: Acute Code(s): K63.0 - ABSCESS OF INTESTINE SNOMED Code(s): 650894584 (2) Diverticulitis Current Visit: Yes Status: Acute Code(s): K57.92 - DVTRCLI OF INTEST, PART UNSP, W/O PERF OR ABSCESS W/O BLEED SNOMED Code(s): 778631580 (3) Failure of outpatient treatment Current Visit: No Status: Acute Code(s): Z78.9 - OTHER SPECIFIED HEALTH STATUS SNOMED Code(s): 556171193 Plan: 1-Zosyn 3.375 g every 8 hour 2-we will wait for the OR culture to determine his discharge antibiotic however in view of extensive infection he will benefit from continuation of antibiotic in the outpatient setting We will follow on clinical condition and cultures to further adjust medication if needed Thank you for this consultation we will follow the patient along with you Time with Patient: Greater than 30
[2019-07-08] MEDS: PIPERACILLIN-TAZOBACTAM 3.375 GM in SODIUM CHLORIDE 0.9% 100 ML IVPB SCH ×4 (01:24→23:02)
[2019-07-08] MEDS: METOCLOPRAMIDE 5 MG/ML 2 ML VIAL IVP SCH ×4 (06:17→23:02)
[2019-07-08] MEDS: SODIUM CHLORIDE 0.9% 1,000 ML IV SCH ×3 (06:20→22:58)
[2019-07-08 08:06] LABS: Basophils % (A) 0 %; Eosinophils % (A) 1 %; HCT 36.8 % (39.0-53.0); HGB 12.1 gm/dL (13.0-17.5); Lymphocytes # (A) 0.9 k/uL (1.0-4.8); Lymphocytes % (A) 12 %; MCH 30.4 pg (25.0-35.0); MCHC 32.8 g/dL (31.0-37.0); MCV 92.7 fL (80.0-100.0); Mean Platelet Volume 7.7; Monocytes # (A) 0.6 k/uL (0-1.0); Monocytes % (A) 8 %; Neutrophils # (A) 5.7 k/uL (1.3-7.7); Neutrophils % (A) 78 %; Platelet Count 233 k/uL (150-450); RBC 3.97 m/uL (4.30-5.90); RDW 13.6 % (11.5-15.5); WBC 7.4 k/uL (3.8-10.6)
[2019-07-08 08:22] LABS: ALT 15 U/L (4-49); AST 19 U/L (17-59); African American GFR (CKD) >90 (>60 ml/min/1.73 sqM); Albumin 2.7 g/dL (3.5-5.0); Alkaline Phosphatase 25 U/L (38-126); Anion Gap 4 mmol/L; Blood Urea Nitrogen 17 mg/dL (9-20); Calcium 7.8 mg/dL (8.4-10.2); Carbon Dioxide 28 mmol/L (22-30); Chloride 101 mmol/L (98-107); Glucose 107 mg/dL (74-99); Non-African American GFR(CKD) 88 (>60 ml/min/1.73 sqM); Potassium 4.7 mmol/L (3.5-5.1); Sodium 133 mmol/L (137-145); Total Bilirubin 0.7 mg/dL (0.2-1.3); Total Protein 4.9 g/dL (6.3-8.2)
[2019-07-08] MEDS: metroNIDAZOLE-NS PMX 500 MG in SALINE 1 100ML.BAG IVPB SCH ×3 (09:21→22:59)
[2019-07-08] MEDS: PANTOPRAZOLE 40 MG TABLET PO SCH ×2 (09:23→19:40)
[2019-07-08] MEDS: FAMOTIDINE 20 MG/2 ML VIAL IV SCH ×2 (09:23→19:40)
[2019-07-08] MEDS: HEPARIN SODIUM,PORCINE 5,000 UNIT/ML 1 ML VIAL SQ SCH ×3 (09:23→23:02)
--- NOTE | 2019-07-08 13:04 | P.PN ---
Subjective Progress Note Date: 07/08/19 Patient seen and examined at bedside. States he is feeling much better today. He has ambulated with the assistance of nursing. He said his pain is better controlled with increase in epidural rate. Kohler catheter in place. No output from ostomy as of yet. Objective - Vital Signs Vital signs: Vital Signs Temp 97.9 F 07/08/19 09:00 Pulse 93 07/08/19 09:00 Resp 17 07/08/19 09:00 BP 140/83 07/08/19 09:00 Pulse Ox 95 07/08/19 09:00 Intake & Output 07/07/19 07/08/19 07/08/19 18:59 06:59 18:59 Intake Total 900 Output Total 630 255 180 Balance 270 -255 -180 Intake: Intake, IV Titration 900 Amount Piperacillin-Tazobactam 3 100 .375 gm In Sodium Chloride 0.9% 100 ml @ 25 mls/hr IVPB Q8HR [facility] Rx# :[id number] Sodium Chloride 0.9% 1, 600 000 ml @ 100 mls/hr IV . Q10H [facility] Rx#:[id number] metroNIDAZOLE-NS PMX 500 200 mg In Saline 1 100ml.bag @ 100 mls/hr IVPB Q8HR [facility]OWER Rx#:[id number] Output: Drainage 30 255 180 Right Abdomen 30 255 180 Urine 600 Other: Voiding Method Indwelling Catheter Indwelling Catheter Indwelling Catheter - Constitutional General appearance: Present: cooperative, no acute distress - Gastrointestinal Gastrointestinal Comment(s): Soft, appropriate tenderness, nondistended, no rebound, no guarding, ostomy site is pink and patent - Psychiatric Psychiatric: Present: A&O x's 3 - Labs CBC & Chem 7: 07/08/19 07:33 07/08/19 07:33 Labs: Abnormal Lab Results - Last 24 Hours (Table) 07/08/19 07/08/19 Range/Units 07:33 07:33 RBC 3.97 L (4.30-5.90) m/uL Hgb 12.1 L (13.0-17.5) gm/dL Hct 36.8 L (39.0-53.0) % Lymphocytes # 0.9 L (1.0-4.8) k/uL Sodium 133 L (137-145) mmol/L Glucose 107 H (74-99) mg/dL Calcium 7.8 L (8.4-10.2) mg/dL Alkaline Phosphatase 25 L (38-126) U/L Total Protein 4.9 L (6.3-8.2) g/dL Albumin 2.7 L (3.5-5.0) g/dL Microbiology - Last 24 Hours (Table) 07/06/19 20:10 Gram Stain - Preliminary Abdomen Wound Culture - Preliminary 07/06/19 10:53 Blood Culture - Preliminary Blood No Growth after 24 hours Assessment and Plan Plan: Postoperative day #2, exploratory laparotomy, Campo's procedure Continue clear liquid diet at this time, await further bowel function Continue epidural Continue Kohler catheter while epidural is in place Increase activity, this was discussed with the patient Continue incentive spirometry Await cultures and ID recommendations
--- NOTE | 2019-07-08 13:43 | P.PN ---
Subjective This is a pleasant 59 years old male with past medical history of coronary artery disease status post stent placement, GERD, presents with abdominal pain, he underwent Campo procedure on 07/05 secondary to diverticulitis with an abscess with drainage of the abscess. Patient currently on Flagyl and Zosyn per ID recommendation, follow-up with culture results. The meantime patient remains on epidural however he was able to walk in the hallway using her walker with no difficulty and his pain is controlled, patient is tolerating diet well as per him with no nausea or vomiting. Objective - Vital Signs Vital signs: Vital Signs Temp 97.9 F 07/08/19 09:00 Pulse 93 07/08/19 09:00 Resp 17 07/08/19 09:00 BP 140/83 07/08/19 09:00 Pulse Ox 95 07/08/19 09:00 Intake & Output 07/07/19 07/08/19 07/08/19 18:59 06:59 18:59 Intake Total 900 Output Total 630 255 180 Balance 270 -255 -180 Intake: Intake, IV Titration 900 Amount Piperacillin-Tazobactam 3 100 .375 gm In Sodium Chloride 0.9% 100 ml @ 25 mls/hr IVPB Q8HR [facility] Rx# :[id number] Sodium Chloride 0.9% 1, 600 000 ml @ 100 mls/hr IV . Q10H [facility] Rx#:[id number] metroNIDAZOLE-NS PMX 500 200 mg In Saline 1 100ml.bag @ 100 mls/hr IVPB Q8HR [facility] Rx#:[id number] Output: Drainage 30 255 180 Right Abdomen 30 255 180 Urine 600 Other: Voiding Method Indwelling Catheter Indwelling Catheter Indwelling Catheter - Exam GENERAL: The patient is alert and oriented x3, not in any acute distress. Well developed, well nourished. HEENT: Pupils are round and equally reacting to light. EOMI. No scleral icterus. No conjunctival pallor. Normocephalic, atraumatic. No pharyngeal erythema. No thyromegaly. CARDIOVASCULAR: S1 and S2 present. No murmurs, rubs, or gallops. PULMONARY: Chest is clear to auscultation, no wheezing or crackles. -ABDOMEN: Soft, nontender, nondistended, normoactive bowel sounds. No palpable organomegaly. Ostomy is in place MUSCULOSKELETAL: No joint swelling or deformity. EXTREMITIES: No cyanosis, clubbing, or pedal edema. NEUROLOGICAL: Gross neurological examination did not reveal any focal deficits. SKIN: No rashes. no petechiae. - Labs CBC & Chem 7: 07/08/19 07:33 07/08/19 07:33 Labs: Abnormal Lab Results - Last 24 Hours (Table) 07/08/19 07/08/19 Range/Units 07:33 07:33 RBC 3.97 L (4.30-5.90) m/uL Hgb 12.1 L (13.0-17.5) gm/dL Hct 36.8 L (39.0-53.0) % Lymphocytes # 0.9 L (1.0-4.8) k/uL Sodium 133 L (137-145) mmol/L Glucose 107 H (74-99) mg/dL Calcium 7.8 L (8.4-10.2) mg/dL Alkaline Phosphatase 25 L (38-126) U/L Total Protein 4.9 L (6.3-8.2) g/dL Albumin 2.7 L (3.5-5.0) g/dL Microbiology - Last 24 Hours (Table) 07/06/19 10:53 Blood Culture - Preliminary Blood No Growth after 48 hours 07/06/19 20:10 Gram Stain - Preliminary Abdomen Wound Culture - Preliminary Assessment and Plan Assessment: Purulent Diverticulitis with diverticular abscess, status post Chrissy procedure and I and D Gastroesophageal reflux disease History of coronary artery disease status post stent Plan: This is a pleasant 59 years old male who presents with diverticulitis is an abscess status post Chrissy procedure, continue with antibiotics as per ID team, continue with diet as tolerated. Pain management and DVT prophylaxis as per primary team Labs and medication were reviewed.. Continue same treatment. Continue with sy mptomatic treatment. Resume home medication. Monitor lytes and vitals. DVT and GI prophylaxis. Further recommendations of the clinical course of the patient DVT prophylaxis: Subcutaneous heparin GI Prophylaxis: Pepcid Prognosis is guarded
[2019-07-08] MEDS: ROPIVACAINE 250 MG, HYDROMORPHONE (PF) 5 MG in SODIUM CHLORIDE 0.9% 200 ML EPIDURAL PRN (19:16)
--- NOTE | 2019-07-08 22:33 | PN ---
PROGRESS NOTE DATE OF SERVICE: 07/08/2019 REASON FOR FOLLOWUP: Abdominal abscess. INTERVAL HISTORY: The patient is currently afebrile, has been feeling better, breathing comfortably. His abdominal pain is currently controlled. Denies having any chest pain, shortness of breath or cough. PHYSICAL EXAMINATION: Blood pressure 145/82 with a pulse of 76, temperature 97.5. He is 97% on room air. General description is a middle-aged male up in the room in no distress. RESPIRATORY SYSTEM: Unlabored breathing. Clear to auscultation anteriorly. HEART: S1, S2. Regular rate and rhythm. ABDOMEN: Soft. LABS: Hemoglobin is 12.1, white count 7.4. Abdominal cultures currently pending. Blood culture has been negative so far. DIAGNOSTIC IMPRESSION AND PLAN: Patient with abdominal abscess from ruptured appendicitis. This patient is currently covered with Zosyn. He will benefit from IV antibiotic on discharge, with antibiotic depending upon the culture report. Continue with supportive care. MMODL / IJN: [id number] /
[2019-07-09] MEDS: METOCLOPRAMIDE 5 MG/ML 2 ML VIAL IVP SCH ×4 (04:57→23:04)
[2019-07-09 08:24] LABS: Basophils % (A) 0 %; Eosinophils # (A) 0.1 k/uL (0-0.7); Eosinophils % (A) 3 %; HCT 31.8 % (39.0-53.0); HGB 10.6 gm/dL (13.0-17.5); Lymphocytes # (A) 1.2 k/uL (1.0-4.8); Lymphocytes % (A) 25 %; MCH 30.3 pg (25.0-35.0); MCHC 33.2 g/dL (31.0-37.0); MCV 91.3 fL (80.0-100.0); Mean Platelet Volume 7.7; Monocytes # (A) 0.5 k/uL (0-1.0); Monocytes % (A) 10 %; Neutrophils # (A) 2.8 k/uL (1.3-7.7); Neutrophils % (A) 59 %; Platelet Count 199 k/uL (150-450); RBC 3.49 m/uL (4.30-5.90); RDW 13.3 % (11.5-15.5); WBC 4.7 k/uL (3.8-10.6)
[2019-07-09] MEDS: metroNIDAZOLE-NS PMX 500 MG in SALINE 1 100ML.BAG IVPB SCH ×3 (08:29→23:05)
[2019-07-09] MEDS: PANTOPRAZOLE 40 MG TABLET PO SCH (08:30)
[2019-07-09] MEDS: HEPARIN SODIUM,PORCINE 5,000 UNIT/ML 1 ML VIAL SQ SCH ×3 (08:30→23:04)
[2019-07-09] MEDS: FAMOTIDINE 20 MG/2 ML VIAL IV SCH ×2 (08:30→19:41)
[2019-07-09 08:45] LABS: ALT 12 U/L (4-49); AST 18 U/L (17-59); African American GFR (CKD) >90 (>60 ml/min/1.73 sqM); Albumin 2.3 g/dL (3.5-5.0); Alkaline Phosphatase 21 U/L (38-126); Anion Gap 5 mmol/L; Blood Urea Nitrogen 10 mg/dL (9-20); Calcium 7.3 mg/dL (8.4-10.2); Carbon Dioxide 26 mmol/L (22-30); Chloride 101 mmol/L (98-107); Glucose 84 mg/dL (74-99); Non-African American GFR(CKD) >90 (>60 ml/min/1.73 sqM); Potassium 3.9 mmol/L (3.5-5.1); Sodium 132 mmol/L (137-145); Total Bilirubin 0.4 mg/dL (0.2-1.3); Total Protein 4.3 g/dL (6.3-8.2)
[2019-07-09] MEDS: PIPERACILLIN-TAZOBACTAM 3.375 GM in SODIUM CHLORIDE 0.9% 100 ML IVPB SCH ×2 (10:31→17:28)
--- NOTE | 2019-07-09 11:03 | P.PN ---
Subjective This is a pleasant 59 years old male with past medical history of coronary artery disease status post stent placement, GERD, presents with abdominal pain, he underwent Campo procedure on 07/05 secondary to diverticulitis with an abscess with drainage of the abscess. Patient currently on Flagyl and Zosyn per ID recommendation, follow-up with culture results. The meantime patient remains on epidural however he was able to walk in the hallway using her walker with no difficulty and his pain is controlled, patient is tolerating diet well as per him with no nausea or vomiting. 07/09/2019 Patient seen and is walking in the hallway, he still have epidural and Kohler catheter, states that his ostomy bag is working, Pertussis vitals are stable, no leukocytosis sodium 132, Rest of labs were unremarkable. Patient remains on Zosyn, and Flagyl Objective - Vital Signs Vital signs: Vital Signs Temp 97.5 F L 07/09/19 09:00 Pulse 75 07/09/19 09:00 Resp 18 07/09/19 09:00 BP 165/88 07/09/19 09:00 Pulse Ox 95 07/09/19 09:00 Intake & Output 07/08/19 07/09/19 07/09/19 18:59 06:59 18:59 Intake Total 200.7 Output Total 1155 1080 1455 Balance -1155 -879.3 -1455 Intake: Intake, IV Titration 200.7 Amount Ropivacaine 250 mg 200.7 Hydromorphone (Pf) 5 mg In Sodium Chloride 0.9% 200 ml @ 0 mls/hr EPIDURAL .Q0M PRN Rx#: [id number] Output: Drainage 255 80 155 Right Abdomen 255 80 155 Urine 900 1000 1300 Uretheral (Kohler) 1000 Other: Voiding Method Indwelling Catheter Indwelling Catheter Indwelling Catheter - Exam GENERAL: The patient is alert and oriented x3, not in any acute distress. Well developed, well nourished. HEENT: Pupils are round and equally reacting to light. EOMI. No scleral icterus. No conjunctival pallor. Normocephalic, atraumatic. No pharyngeal erythema. No thyromegaly. CARDIOVASCULAR: S1 and S2 present. No murmurs, rubs, or gallops. PULMONARY: Chest is clear to auscultation, no wheezing or crackles. -ABDOMEN: Soft, nontender, nondistended, normoactive bowel sounds. No palpable organomegaly. Ostomy is in place MUSCULOSKELETAL: No joint swelling or deformity. EXTREMITIES: No cyanosis, clubbing, or pedal edema. NEUROLOGICAL: Gross neurological examination did not reveal any focal deficits. SKIN: No rashes. no petechiae. - Labs CBC & Chem 7: 07/09/19 07:54 07/09/19 07:54 Labs: Abnormal Lab Results - Last 24 Hours (Table) 07/09/19 07/09/19 Range/Units 07:54 07:54 RBC 3.49 L (4.30-5.90) m/uL Hgb 10.6 L (13.0-17.5) gm/dL Hct 31.8 L (39.0-53.0) % Sodium 132 L (137-145) mmol/L Calcium 7.3 L (8.4-10.2) mg/dL Alkaline Phosphatase 21 L (38-126) U/L Total Protein 4.3 L (6.3-8.2) g/dL Albumin 2.3 L (3.5-5.0) g/dL Microbiology - Last 24 Hours (Table) 07/06/19 20:10 Anaerobic Culture - Preliminary Other - Other 07/06/19 20:10 Anaerobic Culture - Preliminary Abdomen 07/06/19 20:10 Gram Stain - Final Abdomen Wound Culture - Final 07/06/19 10:53 Blood Culture - Preliminary Blood No Growth after 48 hours Assessment and Plan Assessment: Purulent Diverticulitis with diverticular abscess, status post Chrissy procedure and I and D mild hyponatremia, symptomatic Gastroesophageal reflux disease History of coronary artery disease status post stent Plan: This is a pleasant 59 years old male who presents with diverticulitis is an abscess status post Chrissy procedure, continue with antibiotics as per ID team, continue with diet as tolerated. Pain management and DVT prophylaxis as per primary team Labs and medication were reviewed.. Continue same treatment. Continue with symptomatic treatment. Resume home medication. Monitor lytes and vitals. DVT and GI prophylaxis. Further recommendations of the clinical course of the patient DVT prophylaxis: Subcutaneous heparin GI Prophylaxis: Pepcid Prognosis is guarded
--- NOTE | 2019-07-09 11:53 | P.PN ---
Subjective Progress Note Date: 07/09/19 Patient seen and examined at bedside. States he is feeling much better. Denies abdominal pain. Having gas in the ostomy. Objective - Vital Signs Vital signs: Vital Signs Temp 97.5 F L 07/09/19 09:00 Pulse 75 07/09/19 09:00 Resp 18 07/09/19 09:00 BP 165/88 07/09/19 09:00 Pulse Ox 95 07/09/19 09:00 Intake & Output 07/08/19 07/09/19 07/09/19 18:59 06:59 18:59 Intake Total 200.7 Output Total 1155 1080 1455 Balance -1155 -879.3 -1455 Intake: Intake, IV Titration 200.7 Amount Ropivacaine 250 mg 200.7 Hydromorphone (Pf) 5 mg In Sodium Chloride 0.9% 200 ml @ 0 mls/hr EPIDURAL .Q0M PRN Rx#: [id number] Output: Drainage 255 80 155 Right Abdomen 255 80 155 Urine 900 1000 1300 Uretheral (Kohler) 1000 Other: Voiding Method Indwelling Catheter Indwelling Catheter Indwelling Catheter - Constitutional General appearance: Present: cooperative, no acute distress - Gastrointestinal Gastrointestinal Comment(s): Incision site clean, dry and intact with sterile dressing in place. Soft, appropriate tenderness, nondistended, no rebound, no guarding, ostomy is pink and patent with very mild brown output - Psychiatric Psychiatric: Present: A&O x's 3 - Labs CBC & Chem 7: 07/09/19 07:54 07/09/19 07:54 Labs: Abnormal Lab Results - Last 24 Hours (Table) 07/09/19 07/09/19 Range/Units 07:54 07:54 RBC 3.49 L (4.30-5.90) m/uL Hgb 10.6 L (13.0-17.5) gm/dL Hct 31.8 L (39.0-53.0) % Sodium 132 L (137-145) mmol/L Calcium 7.3 L (8.4-10.2) mg/dL Alkaline Phosphatase 21 L (38-126) U/L Total Protein 4.3 L (6.3-8.2) g/dL Albumin 2.3 L (3.5-5.0) g/dL Microbiology - Last 24 Hours (Table) 07/06/19 20:10 Anaerobic Culture - Preliminary Other - Other 07/06/19 20:10 Anaerobic Culture - Preliminary Abdomen 07/06/19 20:10 Gram Stain - Final Abdomen Wound Culture - Final 07/06/19 10:53 Blood Culture - Preliminary Blood No Growth after 48 hours Assessment and Plan Plan: Postoperative day #3, exploratory laparotomy, Campo's procedure Patient is beginning to have flatus, will advance to full liquid diet Continue epidural, likely discontinue tomorrow Continue Kohler catheter while epidural is in place Increase activity, this was discussed with the patient Continue incentive spirometry Await cultures and ID recommendations for possible outpatient antibiotics, pat ient is receiving a midline today
[2019-07-09] MEDS ORDERED: diphenhydrAMINE 25 MG CAP PO PRN (11:54)
[2019-07-09] MEDS: SODIUM CHLORIDE 0.9% 1,000 ML IV SCH ×2 (13:03→21:48)
[2019-07-09] MEDS: ROPIVACAINE 250 MG, HYDROMORPHONE (PF) 5 MG in SODIUM CHLORIDE 0.9% 200 ML EPIDURAL PRN (19:19)
--- NOTE | 2019-07-09 22:51 | PN ---
PROGRESS NOTE DATE OF SERVICE: 07/09/2019 REASON FOR FOLLOWUP: Abdominal abscess. INTERVAL HISTORY: The patient is currently afebrile, has been breathing comfortably. Denies having any chest pain or shortness of breath or cough. No nausea or vomiting. Abdominal pain is currently controlled. PHYSICAL EXAMINATION: Blood pressure 179/95 with a pulse of 74, temperature of 97.8. He is 97% on room air. General description is a middle-aged male up in the chair in no distress. RESPIRATORY SYSTEM: Unlabored breathing. Clear to auscultation anteriorly. HEART: S1, S2. Regular rate and rhythm. ABDOMEN: Soft. No output in the colostomy bag. EXTREMITIES: No edema of the feet. LABS: Hemoglobin is 10.6, white count 4.7, BUN of 10, creatinine 0.81. Abdominal culture so far pending. DIAGNOSTIC IMPRESSION AND PLAN: Patient with an abdominal abscess, status post laparotomy and drainage of the abscess. Culture so far pending. In view of his complicated history, will get midline for tomorrow and arrange for IV Invanz 1 gram daily for at least discharge. Continue with supportive care. MMODL / IJN: [id number] /
[2019-07-10] MEDS: PIPERACILLIN-TAZOBACTAM 3.375 GM in SODIUM CHLORIDE 0.9% 100 ML IVPB SCH ×2 (00:13→09:55)
[2019-07-10] MEDS: METOCLOPRAMIDE 5 MG/ML 2 ML VIAL IVP SCH ×4 (05:37→23:45)
[2019-07-10] MEDS: metroNIDAZOLE-NS PMX 500 MG in SALINE 1 100ML.BAG IVPB SCH ×3 (08:43→23:46)
[2019-07-10] MEDS: HEPARIN SODIUM,PORCINE 5,000 UNIT/ML 1 ML VIAL SQ SCH ×3 (08:43→23:45)
[2019-07-10] MEDS: PANTOPRAZOLE 40 MG TABLET PO SCH (08:43)
[2019-07-10] MEDS: FAMOTIDINE 20 MG/2 ML VIAL IV SCH ×2 (08:44→20:07)
--- NOTE | 2019-07-10 10:08 | P.PN ---
Subjective Progress Note Date: 07/10/19 Patient seen and examined at bedside. No acute events. Having continued flatus from ostomy, no significant bowel output. States pain is well-controlled. Denies nausea or vomiting. Tolerating full liquid diet. Objective - Vital Signs Vital signs: Vital Signs Temp 97.9 F 07/10/19 06:09 Pulse 77 07/10/19 06:09 Resp 16 07/10/19 06:09 BP 158/89 07/10/19 05:48 Pulse Ox 93 L 07/10/19 06:09 Intake & Output 07/09/19 07/10/19 07/10/19 18:59 06:59 18:59 Intake Total 216.45 Output Total 4105 1565 Balance -4105 -1348.55 Intake: Intake, IV Titration 216.45 Amount Ropivacaine 250 mg 216.45 Hydromorphone (Pf) 5 mg In Sodium Chloride 0.9% 200 ml @ 0 mls/hr EPIDURAL .Q0M PRN Rx#: [id number] Output: Drainage 305 115 Right Abdomen 305 115 Urine 3800 1450 Other: Voiding Method Indwelling Catheter Indwelling Catheter Indwelling Catheter - Constitutional General appearance: Present: cooperative, no acute distress - Respiratory Details: No difficulty with respiration, no cough - Gastrointestinal Gastrointestinal Comment(s): Soft, appropriate tenderness, mild distention, no rebound, no guarding, midline incision is clean, dry and intact, SURAJ drain in place with serosanguineous output, ostomy is pink and patent - Psychiatric Psychiatric: Present: A&O x's 3 - Labs CBC & Chem 7: 07/09/19 07:54 07/09/19 07:54 Labs: Abnormal Lab Results - Last 24 Hours (Table) 07/10/19 Range/Units 07:14 C-Reactive Protein 48.2 H (<10.0) mg/L Microbiology - Last 24 Hours (Table) 07/06/19 20:10 Gram Stain - Final Other - Other Wound Culture - Final Enterococcus faecium 07/06/19 10:53 Blood Culture - Preliminary Blood No Growth after 72 hours Assessment and Plan Plan: Postoperative day #4, exploratory laparotomy, Campo's procedure Patient continues to have flatus, no significant bowel output otherwise, advance to low fiber diet, await bowel function Discontinue epidural - IV and by mouth pain meds have been started Discontinue Kohler catheter Ostomy nurse to visit patient Increase activity, this was discussed with the patient Continue incentive spirometry Midline was placed, plan for outpatient antibiotics on discharge
--- NOTE | 2019-07-10 10:53 | P.PN ---
Subjective This is a pleasant 59 years old male with past medical history of coronary artery disease status post stent placement, GERD, presents with abdominal pain, he underwent Campo procedure on 07/05 secondary to diverticulitis with an abscess with drainage of the abscess. Patient currently on Flagyl and Zosyn per ID recommendation, follow-up with culture results. The meantime patient remains on epidural however he was able to walk in the hallway using her walker with no difficulty and his pain is controlled, patient is tolerating diet well as per him with no nausea or vomiting. 07/09/2019 Patient seen and is walking in the hallway, he still have epidural and Kohler catheter, states that his ostomy bag is working, Pertussis vitals are stable, no leukocytosis sodium 132, Rest of labs were unremarkable. Patient remains on Zosyn, and Flagyl 07/10/2019 Patient lying comfortably in bed, he feels generally tired but no specific symptoms, colostomy bag is filled with little electric welder brown liquid, distal got epidural and Kohler catheter. Vitals are stable. ESR is normal at 13 and C- reactive protein is elevated at 48.2. Patient remains on Flagyl and Zosyn and infectious disease R following Objective - Vital Signs Vital signs: Vital Signs Temp 97.9 F 07/10/19 06:09 Pulse 77 07/10/19 06:09 Resp 16 07/10/19 06:09 BP 158/89 07/10/19 05:48 Pulse Ox 93 L 07/10/19 06:09 Intake & Output 07/09/19 07/10/19 07/10/19 18:59 06:59 18:59 Intake Total 216.45 Output Total 4105 1565 Balance -4105 -1348.55 Intake: Intake, IV Titration 216.45 Amount Ropivacaine 250 mg 216.45 Hydromorphone (Pf) 5 mg In Sodium Chloride 0.9% 200 ml @ 0 mls/hr EPIDURAL .Q0M PRN Rx#: [id number] Output: Drainage 305 115 Right Abdomen 305 115 Urine 3800 1450 Other: Voiding Method Indwelling Catheter Indwelling Catheter Indwelling Catheter - Exam GENERAL: The patient is alert and oriented x3, not in any acute distress. Well developed, well nourished. HEENT: Pupils are round and equally reacting to light. EOMI. No scleral icterus. No conjunctival pallor. Normocephalic, atraumatic. No pharyngeal erythema. No thyromegaly. CARDIOVASCULAR: S1 and S2 present. No murmurs, rubs, or gallops. PULMONARY: Chest is clear to auscultation, no wheezing or crackles. -ABDOMEN: Soft, nontender, nondistended, normoactive bowel sounds. No palpable organomegaly. Ostomy is in place MUSCULOSKELETAL: No joint swelling or deformity. EXTREMITIES: No cyanosis, clubbing, or pedal edema. NEUROLOGICAL: Gross neurological examination did not reveal any focal deficits. SKIN: No rashes. no petechiae. - Labs CBC & Chem 7: 07/09/19 07:54 07/09/19 07:54 Labs: Abnormal Lab Results - Last 24 Hours (Table) 07/10/19 Range/Units 07:14 C-Reactive Protein 48.2 H (<10.0) mg/L Microbiology - Last 24 Hours (Table) 07/06/19 20:10 Gram Stain - Final Other - Other Wound Culture - Final Enterococcus faecium 07/06/19 10:53 Blood Culture - Preliminary Blood No Growth after 72 hours Assessment and Plan Assessment: Purulent Diverticulitis with diverticular abscess, status post Chrissy procedure and I and D mild hyponatremia, symptomatic Gastroesophageal reflux disease History of coronary artery disease status post stent Plan: This is a pleasant 59 years old male who presents with diverticulitis is an abscess status post Chrissy procedure, continue with antibiotics as per ID team, continue with diet as tolerated. Pain management and DVT prophylaxis as per primary team Labs and medication were reviewed.. Continue same treatment. Continue with symptomatic treatment. Resume home medication. Monitor lytes and vitals. DVT and GI prophylaxis. Further recommendations of the clinical course of the patient DVT prophylaxis: Subcutaneous heparin GI Prophylaxis: Pepcid Prognosis is guarded
[2019-07-10] MEDS: KETOROLAC 30 MG/ML 1 ML VIAL IVP SCH ×3 (12:05→23:45)
[2019-07-10] MEDS: MORPHINE SULFATE 2 MG/ML SYRINGE IVP PRN (12:26)
[2019-07-10] MEDS: SODIUM CHLORIDE 0.9% 1,000 ML IV SCH ×2 (12:57→23:51)
--- NOTE | 2019-07-10 16:32 | PN ---
PROGRESS NOTE DATE OF SERVICE: 07/10/2019 REASON FOR FOLLOWUP: Abdominal abscess. INTERIM HISTORY: The patient is afebrile. He is breathing comfortably. Denies any chest pain or shortness of breath. No cough. No nausea or vomiting. No abdominal pain. Did have . On examination, blood pressure 132/84. Pulse of 74. Temperature 98.3. He is 93% on room air. General description is a middle aged male lying in bed in no distress. Respiratory system: Unlabored breathing. Clear to auscultation anteriorly. Heart: S1, S2 regular rate and rhythm. Abdomen soft, no tenderness. LABS: 48.2. Enterococcus faecium that is resistant to ampicillin. DIAGNOSTIC IMPRESSION AND PLAN: Patient with abdominal abscess, diverting colostomy, abdominal culture with Enterococcus faecium resistant to ampicillin. Zosyn discontinued. We will add daptomycin along with Flagyl for a total of 2 weeks with close outpatient followup. The patient did have a midline and will be followed in the outpatient setting with vancomycin in order to on discharge, antibiotic has been switched to Daptomycin along with oral Flagyl. We will monitor his weekly which is currently at 48.2. MMODL / IJN: [id number] /
[2019-07-10] MEDS: DAPTOmycin 350 MG in SODIUM CHLORIDE 0.9% 50 ML IVPB SCH (17:13)
[2019-07-10] MEDS ORDERED: diphenhydrAMINE 50 MG/ML 1 ML VIAL IVP STA (18:24)
[2019-07-10] MEDS ORDERED: diphenhydrAMINE 50 MG/ML 1 ML VIAL ONE (18:26)
[2019-07-10] MEDS: HYDROcodone/APAP 5-325MG 1 EACH TAB PO PRN (20:49)
[2019-07-11] MEDS: HYDROcodone/APAP 5-325MG 1 EACH TAB PO PRN (04:13)
[2019-07-11] MEDS: KETOROLAC 30 MG/ML 1 ML VIAL IVP SCH ×4 (05:35→23:50)
[2019-07-11] MEDS: METOCLOPRAMIDE 5 MG/ML 2 ML VIAL IVP SCH ×4 (05:35→23:51)
[2019-07-11] MEDS: MORPHINE SULFATE 2 MG/ML SYRINGE IVP PRN ×2 (06:07→10:03)
[2019-07-11] MEDS: HEPARIN SODIUM,PORCINE 5,000 UNIT/ML 1 ML VIAL SQ SCH ×3 (07:31→23:50)
[2019-07-11] MEDS: PANTOPRAZOLE 40 MG TABLET PO SCH (07:31)
[2019-07-11] MEDS: metroNIDAZOLE-NS PMX 500 MG in SALINE 1 100ML.BAG IVPB SCH ×3 (07:32→23:51)
[2019-07-11] MEDS: FAMOTIDINE 20 MG/2 ML VIAL IV SCH (07:32)
--- NOTE | 2019-07-11 10:04 | P.PN ---
Subjective Progress Note Date: 07/11/19 The patient is status post Campo's procedure for diverticulitis with abscess. He's tolerating a regular diet. No nausea or vomiting. Having flatus from his ostomy appliance. No bowel movement yet. Complained the oral pain medication didn't work well and so is still using the morphine. He's had one ostomy education session Objective - Vital Signs Vital signs: Vital Signs Temp 98.9 F 07/11/19 05:40 Pulse 79 07/11/19 05:40 Resp 16 07/11/19 05:40 BP 176/99 07/11/19 06:06 Pulse Ox 98 07/11/19 05:40 Intake & Output 07/10/19 07/11/19 07/11/19 18:59 06:59 18:59 Intake Total 320 Output Total 200 460 Balance -200 -140 Intake: Intake, IV Titration 200 Amount metroNIDAZOLE-NS PMX 500 200 mg In Saline 1 100ml.bag @ 100 mls/hr IVPB Q8HR [facility] Rx#:[id number] Oral 120 Output: Drainage 60 Right Abdomen 60 Urine 200 400 Uretheral (Kohler) 400 Other: Voiding Method Indwelling Catheter Toilet Toilet Urinal # Voids 3 - Constitutional General appearance: Present: cooperative, no acute distress - Respiratory Respiratory: bilateral: CTA - Cardiovascular Rhythm: regular - Gastrointestinal General gastrointestinal: Present: normal bowel sounds, soft Localized gastrointestinal: surgical scar: diffuse (Incision is intact clean and dry, ostomy is pink and viable. SURAJ is serous) - Labs CBC & Chem 7: 07/09/19 07:54 07/09/19 07:54 Labs: Microbiology - Last 24 Hours (Table) 07/06/19 20:10 Anaerobic Culture - Final Other - Other 07/06/19 20:10 Anaerobic Culture - Final Abdomen 07/06/19 10:53 Blood Culture - Preliminary Blood No Growth after 96 hours Assessment and Plan (1) Abscess of sigmoid colon Current Visit: Yes Status: Acute Code(s): K63.0 - ABSCESS OF INTESTINE SNOMED Code(s): 069006294 (2) Diverticulitis Current Visit: Yes Status: Acute Code(s): K57.92 - DVTRCLI OF INTEST, PART UNSP, W/O PERF OR ABSCESS W/O BLEED SNOMED Code(s): 442878471 Plan: Hep-Lock the IV. Encouraged ambulation. IV antibiotics per infectious disease. Continue ostomy education. Progressing well.
--- NOTE | 2019-07-11 10:50 | P.PN ---
Subjective This is a pleasant 59 years old male with past medical history of coronary artery disease status post stent placement, GERD, presents with abdominal pain, he underwent Campo procedure on 07/05 secondary to diverticulitis with an abscess with drainage of the abscess. Patient currently on Flagyl and Zosyn per ID recommendation, follow-up with culture results. The meantime patient remains on epidural however he was able to walk in the hallway using her walker with no difficulty and his pain is controlled, patient is tolerating diet well as per him with no nausea or vomiting. 07/09/2019 Patient seen and is walking in the hallway, he still have epidural and Kohler catheter, states that his ostomy bag is working, Pertussis vitals are stable, no leukocytosis sodium 132, Rest of labs were unremarkable. Patient remains on Zosyn, and Flagyl 07/10/2019 Patient lying comfortably in bed, he feels generally tired but no specific symptoms, colostomy bag is filled with little art critic brown liquid, distal got epidural and Kohler catheter. Vitals are stable. ESR is normal at 13 and C- reactive protein is elevated at 48.2. Patient remains on Flagyl and Zosyn and infectious disease R following 07/11/2019 Patient is better today, his epidural and Kohler catheter were taken off, he is able to void with no problem as he reports. No other new complaints. However patient did not have bowel movement until now. He is on antibiotics per ID rec ommendation, his antibiotics were changed to daptomycin and Flagyl for resistant enterococcus faecalis Objective - Vital Signs Vital signs: Vital Signs Temp 98.9 F 07/11/19 05:40 Pulse 79 07/11/19 05:40 Resp 16 07/11/19 05:40 BP 176/99 07/11/19 06:06 Pulse Ox 98 07/11/19 05:40 Intake & Output 07/10/19 07/11/19 07/11/19 18:59 06:59 18:59 Intake Total 320 Output Total 200 460 Balance -200 -140 Intake: Intake, IV Titration 200 Amount metroNIDAZOLE-NS PMX 500 200 mg In Saline 1 100ml.bag @ 100 mls/hr IVPB Q8HR [facility] Rx#:[id number] Oral 120 Output: Drainage 60 Right Abdomen 60 Urine 200 400 Uretheral (Kohler) 400 Other: Voiding Method Indwelling Catheter Toilet Toilet Urinal # Voids 3 - Exam GENERAL: The patient is alert and oriented x3, not in any acute distress. Well developed, well nourished. HEENT: Pupils are round and equally reacting to light. EOMI. No scleral icterus. No conjunctival pallor. Normocephalic, atraumatic. No pharyngeal erythema. No thyromegaly. CARDIOVASCULAR: S1 and S2 present. No murmurs, rubs, or gallops. PULMONARY: Chest is clear to auscultation, no wheezing or crackles. -ABDOMEN: Soft, nontender, nondistended, normoactive bowel sounds. No palpable organomegaly. Ostomy is in place MUSCULOSKELETAL: No joint swelling or deformity. EXTREMITIES: No cyanosis, clubbing, or pedal edema. NEUROLOGICAL: Gross neurological examination did not reveal any focal deficits. SKIN: No rashes. no petechiae. - Labs CBC & Chem 7: 07/09/19 07:54 07/09/19 07:54 Labs: Microbiology - Last 24 Hours (Table) 07/06/19 20:10 Anaerobic Culture - Final Other - Other 07/06/19 20:10 Anaerobic Culture - Final Abdomen 07/06/19 10:53 Blood Culture - Preliminary Blood No Growth after 96 hours Assessment and Plan Assessment: Purulent Diverticulitis with diverticular abscess, status post Chrissy procedure and I and D mild hyponatremia, symptomatic Gastroesophageal reflux disease History of coronary artery disease status post stent Plan: This is a pleasant 59 years old male who presents with diverticulitis is an abscess status post Chrissy procedure, continue with antibiotics as per ID team, continue with diet as tolerated. Pain management and DVT prophylaxis as per primary team Labs and medication were reviewed.. Continue same treatment. Continue with symptomatic treatment. Resume home medication. Monitor lytes and vitals. DVT and GI prophylaxis. Further recommendations of the clinical course of the patient DVT prophylaxis: Subcutaneous heparin GI Prophylaxis: Pepcid Prognosis is guarded
[2019-07-11] MEDS: HYDROcodone/APAP 10-325MG 1 EACH TAB PO PRN ×2 (14:27→20:25)
[2019-07-11] MEDS: DAPTOmycin 350 MG in SODIUM CHLORIDE 0.9% 50 ML IVPB SCH (14:28)
--- NOTE | 2019-07-11 18:15 | PN ---
PROGRESS NOTE DATE OF SERVICE: 07/11/2019. REASON FOR FOLLOWUP: Abdominal sepsis and ruptured diverticulitis. INTERVAL HISTORY: The patient is currently afebrile. The patient has been breathing comfortably. The patient denies having any chest pain, no shortness of breath or cough. No nausea or vomiting and no diarrhea. Did not have any output in his colostomy bag. Apparently, he did have some symptoms yesterday with Daptomycin but now this morning. PHYSICAL EXAMINATION: Blood pressure 174/98 with a pulse of 71, temperature 98.5. He is 100% on room air. General description is a middle-aged male lying in bed in no distress. RESPIRATORY SYSTEM: Unlabored breathing. Clear to auscultation anteriorly. Heart S1, S2. Regular rate and rhythm. Abdomen soft, no tenderness. LABORATORY DATA: Hemoglobin 10.7, white count 4.7. BUN of 10 and creatinine 0.81. DIAGNOSTIC IMPRESSION AND PLAN: Patient with abdominal sepsis from Enterococcus faecium resistant to ampicillin. Patient is currently on daptomycin waiting for the bowel activity before we can discharge home. Continue with IV daptomycin and oral Flagyl in the outpatient setting with close outpatient followup. MMODL / IJN: [id number] /
[2019-07-12] MEDS: METOCLOPRAMIDE 5 MG/ML 2 ML VIAL IVP SCH ×4 (05:16→23:49)
[2019-07-12] MEDS: KETOROLAC 30 MG/ML 1 ML VIAL IVP SCH ×4 (05:17→23:48)
[2019-07-12] MEDS: HYDROcodone/APAP 10-325MG 1 EACH TAB PO PRN (05:21)
--- NOTE | 2019-07-12 09:23 | P.PN ---
Subjective This is a pleasant 59 years old male with past medical history of coronary artery disease status post stent placement, GERD, presents with abdominal pain, he underwent Campo procedure on 07/05 secondary to diverticulitis with an abscess with drainage of the abscess. Patient currently on Flagyl and Zosyn per ID recommendation, follow-up with culture results. The meantime patient remains on epidural however he was able to walk in the hallway using her walker with no difficulty and his pain is controlled, patient is tolerating diet well as per him with no nausea or vomiting. 07/09/2019 Patient seen and is walking in the hallway, he still have epidural and Kohler catheter, states that his ostomy bag is working, Pertussis vitals are stable, no leukocytosis sodium 132, Rest of labs were unremarkable. Patient remains on Zosyn, and Flagyl 07/10/2019 Patient lying comfortably in bed, he feels generally tired but no specific symptoms, colostomy bag is filled with little purchasing manager brown liquid, distal got epidural and Kohler catheter. Vitals are stable. ESR is normal at 13 and C- reactive protein is elevated at 48.2. Patient remains on Flagyl and Zosyn and infectious disease R following 07/11/2019 Patient is better today, his epidural and Kohler catheter were taken off, he is able to void with no problem as he reports. No other new complaints. However patient did not have bowel movement until now. He is on antibiotics per ID rec ommendation, his antibiotics were changed to daptomycin and Flagyl for resistant enterococcus faecalis 07/12/2019 Patient is comfortable, no new complaint. Pain is controlled after the epidural catheter is out, no Kohler catheter and patient is voiding. However he did not have bowel movements through his ostomy yet, patient is tolerating that well. He remains on antibiotics Objective - Vital Signs Vital signs: Vital Signs Temp 98.2 F 07/12/19 05:10 Pulse 81 07/12/19 05:10 Resp 18 07/12/19 05:10 BP 171/92 07/12/19 05:10 Pulse Ox 96 07/12/19 05:10 Intake & Output 07/11/19 07/12/19 07/12/19 18:59 06:59 18:59 Output Total 200 Balance -200 Output: Urine 200 Other: Voiding Method Toilet Toilet # Voids 3 - Exam GENERAL: The patient is alert and oriented x3, not in any acute distress. Well developed, well nourished. HEENT: Pupils are round and equally reacting to light. EOMI. No scleral icterus. No conjunctival pallor. Normocephalic, atraumatic. No pharyngeal erythema. No thyromegaly. CARDIOVASCULAR: S1 and S2 present. No murmurs, rubs, or gallops. PULMONARY: Chest is clear to auscultation, no wheezing or crackles. -ABDOMEN: Soft, nontender, nondistended, normoactive bowel sounds. No palpable organomegaly. Ostomy is in place MUSCULOSKELETAL: No joint swelling or deformity. EXTREMITIES: No cyanosis, clubbing, or pedal edema. NEUROLOGICAL: Gross neurological examination did not reveal any focal deficits. SKIN: No rashes. no petechiae. - Labs CBC & Chem 7: 07/09/19 07:54 07/09/19 07:54 Labs: Microbiology - Last 24 Hours (Table) 07/06/19 10:53 Blood Culture - Preliminary Blood No Growth after 120 hours Assessment and Plan Assessment: Purulent Diverticulitis with diverticular abscess, status post Chrissy procedure and I and D mild hyponatremia, symptomatic Gastroesophageal reflux disease History of coronary artery disease status post stent Plan: This is a pleasant 59 years old male who presents with diverticulitis is an a bscess status post Chrissy procedure, continue with antibiotics as per ID team, continue with diet as tolerated. Pain management and DVT prophylaxis as per primary team Labs and medication were reviewed.. Continue same treatment. Continue with symptomatic treatment. Resume home medication. Monitor lytes and vitals. DVT and GI prophylaxis. Further recommendations of the clinical course of the patient DVT prophylaxis: Subcutaneous heparin GI Prophylaxis: Pepcid Prognosis is guarded
[2019-07-12] MEDS: metroNIDAZOLE-NS PMX 500 MG in SALINE 1 100ML.BAG IVPB SCH ×3 (09:24→23:50)
[2019-07-12] MEDS: HEPARIN SODIUM,PORCINE 5,000 UNIT/ML 1 ML VIAL SQ SCH ×3 (09:25→23:49)
[2019-07-12] MEDS: PANTOPRAZOLE 40 MG TABLET PO SCH (09:25)
--- NOTE | 2019-07-12 11:41 | P.PN ---
Subjective Progress Note Date: 07/12/19 Principal diagnosis: Status post Campo's procedure The patient is having expected incisional pain. No nausea or vomiting. Tolerating a diet. He's having flatus and his ostomy appliance but no stool yet. Patient states that he is depressed. Has multiple questions about what activities he can do after surgery and timing of reversal Objective - Vital Signs Vital signs: Vital Signs Temp 98.2 F 07/12/19 05:10 Pulse 71 07/12/19 08:30 Resp 18 07/12/19 08:30 BP 171/92 07/12/19 05:10 Pulse Ox 96 07/12/19 05:10 Intake & Output 07/11/19 07/12/19 07/12/19 18:59 06:59 18:59 Intake Total 60 Output Total 200 5 Balance -200 55 Intake: Oral 60 Output: Drainage 5 Right Abdomen 5 Urine 200 Other: Voiding Method Toilet Toilet Toilet # Voids 3 - Constitutional General appearance: Present: cooperative, no acute distress - Respiratory Respiratory: bilateral: CTA - Cardiovascular Rhythm: regular - Gastrointestinal General gastrointestinal: Present: normal bowel sounds, soft Localized gastrointestinal: surgical scar: diffuse (Dressing is intact clean and dry, ostomy is pink and viable) - Labs CBC & Chem 7: 07/09/19 07:54 07/09/19 07:54 Labs: Microbiology - Last 24 Hours (Table) 07/06/19 10:53 Blood Culture - Preliminary Blood No Growth after 120 hours Assessment and Plan (1) Abscess of sigmoid colon Current Visit: Yes Status: Acute Code(s): K63.0 - ABSCESS OF INTESTINE SNOMED Code(s): 423563541 (2) Diverticulitis Current Visit: Yes Status: Acute Code(s): K57.92 - DVTRCLI OF INTEST, PART UNSP, W/O PERF OR ABSCESS W/O BLEED SNOMED Code(s): 105798008 Plan: We discussed the usual postoperative course after his type of surgery. Also timing of resuming regular activities and reversal surgery. I encouraged him he is doing well from a surgical standpoint. Await return of bowel function and additional ostomy education session. Progressing well.
[2019-07-12] MEDS: DAPTOmycin 350 MG in SODIUM CHLORIDE 0.9% 50 ML IVPB SCH (15:41)
--- NOTE | 2019-07-12 20:47 | PN ---
PROGRESS NOTE DATE OF SERVICE: 07/12/2019 REASON FOR FOLLOW UP: Abdominal abscess and perforated sigmoid diverticulitis. INTERVAL HISTORY: The patient is currently afebrile. Patient has been feeling better. Breathing comfortably. The patient did have output in his colostomy bag. No nausea, no vomiting. No chest pain, shortness of breath or cough. PHYSICAL EXAMINATION: Blood pressure 117/96 with a pulse of 76, temperature 98. He is 98% on room air. General description is a middle-aged male lying in bed in no distress. Respiratory system: Unlabored breathing. Clear to auscultation anteriorly. Heart S1, S2. Regular rate and rhythm. Abdomen soft, no tenderness. LABS: No new labs have been obtained today. DIAGNOSTIC IMPRESSION AND PLAN: Patient with abdominal abscess ruptured sigmoid diverticulitis, failing outpatient antibiotic therapy status post laparotomy and drainage of the abscess and diverting colostomy. Abdominal culture positive for Enterococcus faecium. The patient is currently covered with daptomycin and oral Flagyl to continue for 2 weeks and close outpatient followup. MMODL / IJN: [id number] /
[2019-07-12 22:00] VITALS: RESP 16
[2019-07-12] MEDS: amLODIPine 5 MG TAB PO SCH (22:38)
[2019-07-13] MEDS: KETOROLAC 30 MG/ML 1 ML VIAL IVP SCH ×2 (06:07→11:16)
[2019-07-13] MEDS: METOCLOPRAMIDE 5 MG/ML 2 ML VIAL IVP SCH ×2 (06:08→11:22)
[2019-07-13 07:43] LABS: Basophils % (A) 0 %; Eosinophils # (A) 0.3 k/uL (0-0.7); Eosinophils % (A) 4 %; HCT 41.4 % (39.0-53.0); HGB 13.3 gm/dL (13.0-17.5); Lymphocytes % (A) 17 %; MCH 29.5 pg (25.0-35.0); MCHC 32.2 g/dL (31.0-37.0); MCV 91.5 fL (80.0-100.0); Mean Platelet Volume 7.2; Monocytes # (A) 0.5 k/uL (0-1.0); Monocytes % (A) 8 %; Neutrophils # (A) 4.2 k/uL (1.3-7.7); Neutrophils % (A) 69 %; Platelet Count 283 k/uL (150-450); RBC 4.53 m/uL (4.30-5.90); RDW 13.7 % (11.5-15.5); WBC 6.1 k/uL (3.8-10.6)
[2019-07-13 07:56] LABS: African American GFR (CKD) >90 (>60 ml/min/1.73 sqM); Anion Gap 9 mmol/L; Blood Urea Nitrogen 8 mg/dL (9-20); Calcium 8.5 mg/dL (8.4-10.2); Carbon Dioxide 21 mmol/L (22-30); Chloride 105 mmol/L (98-107); Glucose 102 mg/dL (74-99); Non-African American GFR(CKD) >90 (>60 ml/min/1.73 sqM); Potassium 4.2 mmol/L (3.5-5.1); Sodium 135 mmol/L (137-145)
[2019-07-13] MEDS: metroNIDAZOLE-NS PMX 500 MG in SALINE 1 100ML.BAG IVPB SCH (08:36)
[2019-07-13] MEDS: HEPARIN SODIUM,PORCINE 5,000 UNIT/ML 1 ML VIAL SQ SCH (08:40)
[2019-07-13] MEDS: amLODIPine 5 MG TAB PO SCH (08:40)
[2019-07-13] MEDS: PANTOPRAZOLE 40 MG TABLET PO SCH (08:40)
--- NOTE | 2019-07-13 09:15 | P.PN ---
Subjective This is a pleasant 59 years old male with past medical history of coronary artery disease status post stent placement, GERD, presents with abdominal pain, he underwent Campo procedure on 07/05 secondary to diverticulitis with an abscess with drainage of the abscess. Patient currently on Flagyl and Zosyn per ID recommendation, follow-up with culture results. The meantime patient remains on epidural however he was able to walk in the hallway using her walker with no difficulty and his pain is controlled, patient is tolerating diet well as per him with no nausea or vomiting. 07/09/2019 Patient seen and is walking in the hallway, he still have epidural and Kohler catheter, states that his ostomy bag is working, Pertussis vitals are stable, no leukocytosis sodium 132, Rest of labs were unremarkable. Patient remains on Zosyn, and Flagyl 07/10/2019 Patient lying comfortably in bed, he feels generally tired but no specific symptoms, colostomy bag is filled with little director specialty brown liquid, distal got epidural and Kohler catheter. Vitals are stable. ESR is normal at 13 and C- reactive protein is elevated at 48.2. Patient remains on Flagyl and Zosyn and infectious disease R following 07/11/2019 Patient is better today, his epidural and Kohler catheter were taken off, he is able to void with no problem as he reports. No other new complaints. However patient did not have bowel movement until now. He is on antibiotics per ID rec ommendation, his antibiotics were changed to daptomycin and Flagyl for resistant enterococcus faecalis 07/12/2019 Patient is comfortable, no new complaint. Pain is controlled after the epidural catheter is out, no Kohler catheter and patient is voiding. However he did not have bowel movements through his ostomy yet, patient is tolerating that well. He remains on antibiotics 07/13/2019 Patient is with no new complaint, is lying comfortably in bed, he is happy he had 3 large bowel movements through his ostomy bag, and currently there is some brown stool in the ostomy bag this morning. No abdominal pain, no nausea vomiting, surgical wound looks close and keron are in place, patient fell down yesterday for no bowel movement however he feels better today, he denies suicidal ideation. No other new complaints. Vitals are stable. Labs are stable including CBC, creatinine normal at 0.6. Objective - Vital Signs Vital signs: Vital Signs Temp 97.6 F 07/13/19 05:00 Pulse 85 07/13/19 05:00 Resp 16 07/13/19 05:00 BP 161/95 07/13/19 05:00 Pulse Ox 96 07/13/19 05:00 Intake & Output 07/12/19 07/13/19 07/13/19 18:59 06:59 18:59 Intake Total 60 Output Total 235 Balance -175 Intake: Oral 60 Output: Drainage 35 Right Abdomen 35 Urine 200 Other: Voiding Method Toilet Toilet # Voids 3 # Bowel Movements 1 - Exam GENERAL: The patient is alert and oriented x3, not in any acute distress. Well developed, well nourished. HEENT: Pupils are round and equally reacting to light. EOMI. No scleral icterus. No conjunctival pallor. Normocephalic, atraumatic. No pharyngeal erythema. No thyromegaly. CARDIOVASCULAR: S1 and S2 present. No murmurs, rubs, or gallops. PULMONARY: Chest is clear to auscultation, no wheezing or crackles. -ABDOMEN: Soft, nontender, nondistended, normoactive bowel sounds. No palpable organomegaly. Ostomy is in place MUSCULOSKELETAL: No joint swelling or deformity. EXTREMITIES: No cyanosis, clubbing, or pedal edema. NEUROLOGICAL: Gross neurological examination did not reveal any focal deficits. SKIN: No rashes. no petechiae. - Labs CBC & Chem 7: 07/13/19 07:18 07/13/19 07:18 Labs: Abnormal Lab Results - Last 24 Hours (Table) 07/13/19 Range/Units 07:18 Sodium 135 L (137-145) mmol/L Carbon Dioxide 21 L (22-30) mmol/L BUN 8 L (9-20) mg/dL Glucose 102 H (74-99) mg/dL Microbiology - Last 24 Hours (Table) 07/06/19 10:53 Blood Culture - Final Blood No Growth after 144 hours Assessment and Plan Assessment: Purulent Diverticulitis with diverticular abscess, status post Chrissy procedure and I and D mild hyponatremia, symptomatic Gastroesophageal reflux disease History of coronary artery disease status post stent Plan: This is a pleasant 59 years old male who presents with diverticulitis is an abscess status post Chrissy procedure, continue with antibiotics as per ID team, continue with diet as tolerated. Pain management and DVT prophylaxis as per primary team Labs and medication were reviewed.. Continue same treatment. Continue with symptomatic treatment. Resume home medication. Monitor lytes and vitals. DVT and GI prophylaxis. Further recommendations of the clinical course of the patient DVT prophylaxis: Subcutaneous heparin GI Prophylaxis: Pepcid We recommend patient to follow up with his PCP in one week at the [facility], and patient was instructed with the same Thank you for consulting us
--- NOTE | 2019-07-13 10:06 | P.DS ---
Providers Date of admission: 07/06/19 12:11 Expected date of discharge: 07/13/19 Attending physician: Mercedes Forman DO Consults: 07/06/19 12:23 Consult Physician Urgent Consulting Provider: Rick Werner Consult Reason/Comments: Intra-abdominal abscess Do you want consulting provider notified?: Yes 07/06/19 20:37 Consult Physician Routine Consulting Provider: Kurt Dyson Consult Reason/Comments: Med mgmt Do you want consulting provider notified?: Already Contacted Primary care physician: Risa Baltazar - Discharge Diagnosis(es) (1) Abscess of sigmoid colon Current Visit: Yes Status: Acute (2) Diverticulitis Current Visit: Yes Status: Acute Hospital Course: The patient presented with diverticulitis which was not responding to medical therapy. He was brought to the hospital where he underwent a Campo's proce dure. He was seen by infectious disease and internal medicine. He was started on IV antibiotics and was given a PICC line. He slowly improved. By July 12 was felt to be stable for discharge Patient Condition at Discharge: Good Plan - Discharge Summary Discharge Rx Participant: No New Discharge Prescriptions: New DAPTOmycin [Daptomycin] 350 mg IV DAILY #14 vial metroNIDAZOLE [Flagyl] 500 mg PO TID #42 tab Continue Omeprazole [PriLOSEC] 20 mg PO BID Cholecalciferol [Vitamin D3 (25 Mcg = 1000 Iu)] 1,000 unit PO DAILY HYDROcodone/APAP 10-325MG [[place] 10-325] 1 tab PO Q4HR PRN 3 Days #18 tab PRN Reason: Pain No Action metroNIDAZOLE [Flagyl] 500 mg PO TID #42 tab Cefuroxime Axetil [Ceftin] 500 mg PO BID Discharge Medication List Cholecalciferol [Vitamin D3 (25 Mcg = 1000 Iu)] 1,000 unit PO DAILY 05/22/19 [History] Omeprazole [PriLOSEC] 20 mg PO BID 05/22/19 [History] metroNIDAZOLE [Flagyl] 500 mg PO TID #42 tab 05/25/19 [Rx] Cefuroxime Axetil [Ceftin] 500 mg PO BID 07/06/19 [History] DAPTOmycin [Daptomycin] 350 mg IV DAILY #14 vial 07/10/19 [Rx] HYDROcodone/APAP 10-325MG [[place] 10-325] 1 tab PO Q4HR PRN 3 Days #18 tab 07/10/19 [Rx] metroNIDAZOLE [Flagyl] 500 mg PO TID #42 tab 07/10/19 [Rx] Follow up Appointment(s)/Referral(s): Risa Baltazar DO [Primary Care Provider] - 1-2 days [facility], [NON-STAFF] - 1-2 Days [facility] [NON-STAFF] - 1 Week Mercedes Forman DO [Doctor of Osteopathic Medicine] - 07/20/19 Rick Werner MD [STAFF PHYSICIAN] - 1 Week Patient Instructions/Handouts: Hydrocodone/Acetaminophen (By mouth), Metronidazole (By mouth), Daptomycin (By injection), Colostomy Care (DC) Activity/Diet/Wound Care/Special Instructions: Continue to increase activity daily No lifting greater than 5 pounds Continue local ostomy care [place] will be removed in the office Continue a soft food diet Okay to shower Discharge Disposition: HOME WITH HOME HEALTH SERVICES
[2019-07-13] MEDS: DAPTOmycin 350 MG in SODIUM CHLORIDE 0.9% 50 ML IVPB SCH (11:20)
[2019-07-13 11:53] VITALS: BP 150/86; PULSE 89; TEMP 98.6
--- NOTE | 2019-07-13 16:02 | PN ---
PROGRESS NOTE DATE OF SERVICE: 07/13/2019 REASON FOR FOLLOWUP: Abdominal sepsis. INTERVAL HISTORY: The patient was seen on rounds this morning. The patient has been afebrile, breathing comfortably. Denies having any chest pain or cough. No nausea, vomiting. Abdominal pain is controlled. There is output in his colostomy bag. PHYSICAL EXAMINATION: Blood pressure 150/86, pulse 89, temperature 98.6. He is 92% on room air. General description is a middle-aged male lying in bed in no distress. RESPIRATORY SYSTEM: Unlabored breathing. Clear to auscultation anteriorly. HEART: S1, S2. Regular rate and rhythm. ABDOMEN: Soft. No tenderness. LABS: White count normal at 6.1, creatinine 0.69. DIAGNOSTIC IMPRESSION AND PLAN: Patient with abdominal abscess from ruptured diverticulitis. Because of the need to cover for the faecium, the patient is covered with daptomycin/oral Flagyl combination for 2 weeks and close outpatient followup. MMODL / IJN: [id number] /
--- NOTE | 2019-07-15 13:55 | CDI ---
Documentation Clarification Form Date: 07/15/19 From: Mraietta Lehman CCS Phone: If you have a question about this query, please contact Jeniffer Teague, Utility Appraiser at [phone] between 8am and 5pm. Admit Date: 07/06/19 Discharge Date:07/13/19 Patient Name: Karan Pavon Visit Number: [id number] ATTENTION: The Clinical Documentation Specialists (CDI) and [facility] Coding Staff appreciate your assistance in clarifying documentation. Please respond to the clarification below the line at the bottom and electronically sign. The CDI & [facility] Coding staff will review the response and follow-up if needed. Please note: Queries are made part of the Legal Health Record. If you have any questions, please contact the author of this message via ITS. Dear Dr. Wilkinson, The patient presented with diverticulitis with abscess formation. Intra-abdominal abscess is documented in PNs, Consult. Abdominal sepsis is documented in PNs. History/Risk Factors: Diverticulitis w/ abscess Lab findings: WBC 3.6, Radiology findings: Diverticulosis.There is abnormal attenuation along the medial margin of the liver which may represent nondistended portions of bowel or stomach.Correlate clinically to exclude gastritis or peptic ulcer disease Vital Signs: Temp 97.4, BP 173/87, VA 75, RR 18, O2 Sat 98 Other Clinical Indicators: Treatment: Campo Px, Zosyn 3.375 gm IVPB, Ceftin 500 mg PO BID Consults: Alphonso In your professional opinion, can you please clarify abdominal sepsis? Sepsis Sepsis ruled out Intra-abdominal abscess Other, please specify Unable to determine MTDD
--- NOTE | 2019-07-16 08:00 | P.GSHP ---
History of Present Illness H&P Date: 07/06/19 59-year-old male, well-known to me, presents to the emergency department with complaints of increased abdominal pain.He was admitted approximately 6 weeks ago with diverticular abscess. At that point, patient was noted to be medically stable and the patient was requesting a nonsurgical route of treatment. Secondary to this, he was reviewed by interventional radiology with no plan for IR drainage at that time. Infectious disease did follow with the patient and he has been on outpatient IV antibiotics. His IV course did complete approximately 1 week ago. He has been followed in the meantime with CT that has been showing a mildly improving abscess. He states that over the past day, he has had increased bilateral lower quadrant abdominal pain. He denies any fevers. He denies any nausea or vomiting. He states that he is also noticing more loose stool that he describes as nonbloody. CT of the abdomen and pelvis was performed with concern of possible mesenteric volvulus. The CT also does re- illustrate the history of abscess and the abscess is measured at 2.5 cm. Currently, there is no evidence of lactic acidosis. - Review of Systems All systems: negative Past Medical History Past Medical History: Coronary Artery Disease (CAD), Chest Pain / Angina, GERD/Reflux Additional Past Medical History / Comment(s): Recent diverticulitis then diverticular abscess, low back pain/DDD History of Any Multi-Drug Resistant Organisms: None Reported Past Surgical History: Adenoidectomy, Heart Catheterization With Stent, Tonsillectomy Additional Past Surgical History / Comment(s): UVPPP, EGD, colonoscopy, L ring finger injury with surgical repair, midline Past Anesthesia/Blood Transfusion Reactions: No Reported Reaction Date of Last Stent Placement:: 2003 Smoking Status: Never smoker - Past Family History Mother Family Medical History: No Reported History Additional Family Medical History / Comment(s): Mother is 94 yrs old and healthy Father Family Medical History: CVA/TIA Additional Family Medical History / Comment(s): Father of a CVA at the age of 67yrs. Medications and Allergies Home Medications Medication Instructions Recorded Confirmed Type Cholecalciferol [Vitamin D3 (25 1,000 unit PO DAILY 05/22/19 07/06/19 History Mcg = 1000 Iu)] Omeprazole [PriLOSEC] 20 mg PO BID 05/22/19 07/06/19 History HYDROcodone/APAP 10-325MG [[place] 1 tab PO Q4HR PRN 3 Days #18 tab 05/25/19 07/06/19 Rx 10-325] metroNIDAZOLE [Flagyl] 500 mg PO TID #42 tab 05/25/19 07/06/19 Rx Cefuroxime Axetil [Ceftin] 500 mg PO BID 07/06/19 07/06/19 History Allergies Allergy/AdvReac Type Severity Reaction Status Date / Time No Known Allergies Allergy Verified 07/06/19 12:13 Surgical - Exam Osteopathic Statement: *. No significant issues noted on an osteopathic structural exam other than those noted in the History and Physical/Consult. Vital Signs Temp Pulse Resp BP Pulse Ox 97.4 F L 75 18 173/87 98 07/06/19 10:22 07/06/19 10:22 07/06/19 10:22 07/06/19 10:22 07/06/19 10:22 - General well nourished, no distress - Eyes PERRL - ENT normal mucosa, no hearing loss - Neck trachea midline - Respiratory normal respiratory effort - Abdomen Soft, tender to palpation in bilateral lower quadrants, tender to percussion in the left lower quadrant specifically, no guarding, nondistended - Psychiatric oriented to time, oriented to person, oriented to place Results - Labs 07/06/19 10:40 07/06/19 10:40 Abnormal Lab Results - Last 24 Hours (Table) 07/06/19 07/06/19 Range/Units 10:40 10:40 WBC 3.6 L (3.8-10.6) k/uL Sodium 136 L (137-145) mmol/L Amylase 116 H (30-110) U/L Diabetes panel 07/06/19 Range/Units 10:40 Sodium 136 L (137-145) mmol/L Potassium 4.1 (3.5-5.1) mmol/L Chloride 100 (98-107) mmol/L Carbon Dioxide 28 (22-30) mmol/L BUN 17 (9-20) mg/dL Creatinine 0.86 (0.66-1.25) mg/dL Glucose 97 (74-99) mg/dL Calcium 9.0 (8.4-10.2) mg/dL AST 30 (17-59) U/L ALT 27 (4-49) U/L Alkaline Phosphatase 43 (38-126) U/L Total Protein 7.0 (6.3-8.2) g/dL Albumin 4.5 (3.5-5.0) g/dL Calcium panel 07/06/19 Range/Units 10:40 Calcium 9.0 (8.4-10.2) mg/dL Albumin 4.5 (3.5-5.0) g/dL Pituitary panel 07/06/19 Range/Units 10:40 Sodium 136 L (137-145) mmol/L Potassium 4.1 (3.5-5.1) mmol/L Chloride 100 (98-107) mmol/L Carbon Dioxide 28 (22-30) mmol/L BUN 17 (9-20) mg/dL Creatinine 0.86 (0.66-1.25) mg/dL Glucose 97 (74-99) mg/dL Calcium 9.0 (8.4-10.2) mg/dL Adrenal panel 07/06/19 Range/Units 10:40 Sodium 136 L (137-145) mmol/L Potassium 4.1 (3.5-5.1) mmol/L Chloride 100 (98-107) mmol/L Carbon Dioxide 28 (22-30) mmol/L BUN 17 (9-20) mg/dL Creatinine 0.86 (0.66-1.25) mg/dL Glucose 97 (74-99) mg/dL Calcium 9.0 (8.4-10.2) mg/dL Total Bilirubin 0.3 (0.2-1.3) mg/dL AST 30 (17-59) U/L ALT 27 (4-49) U/L Alkaline Phosphatase 43 (38-126) U/L Total Protein 7.0 (6.3-8.2) g/dL Albumin 4.5 (3.5-5.0) g/dL Assessment and Plan Plan: 59-year-old male with history of diverticular abscess, non-resolving, with possibility of mesenteric volvulus I had a very long discussion with the patient and the patient's . We have attempted avoiding surgical intervention for this issue, however it does appear that his clinical symptoms are worsening today. Secondary to this, I did recommend surgical intervention. Due to the nonresolution of the abscess, he would possibly require a Campo's procedure. Also, secondary to possibility of mesenteric volvulus, he will need an intraoperative evaluation for any ischemic bowel due to his increase in symptoms. This was all explained to the patient in depth. Patient was explained the risks, including injury to surrounding organs such as the bladder or ureter, infection, bleeding. Patient has consented for surgical procedure. Further recommendations to be made after surgery.
--- NOTE | 2019-07-17 11:35 | CDI ---
Documentation Clarification Form Date: 07/17/19 From: Marietta Lehman CCS Phone: If you have a question about this query, please contact Jeniffer Teague, Jar Capper at [phone] between 8am and 5pm. Admit Date: 07/06/19 Discharge Date:07/13/19 Patient Name: Karan Pavon Visit Number: [id number] ATTENTION: The Clinical Documentation Specialists (CDI) and [facility] Coding Staff appreciate your assistance in clarifying documentation. Please respond to the clarification below the line at the bottom and electronically sign. The CDI & [facility] Coding staff will review the response and follow-up if needed. Please note: Queries are made part of the Legal Health Record. If you have any questions, please contact the author of this message via ITS. Dear Dr. Forman, The patient presented with diverticulitis with abscess formation. Intra-abdominal abscess is documented in PNs, Consult. Abdominal sepsis is documented in PNs. History/Risk Factors: Diverticulitis w/ abscess Lab findings: WBC 3.6, Radiology findings: Diverticulosis.There is abnormal attenuation along the medial margin of the liver which may represent nondistended portions of bowel or stomach.Correlate clinically to exclude gastritis or peptic ulcer disease Vital Signs: Temp 97.4, BP 173/87, LA 75, RR 18, O2 Sat 98 Other Clinical Indicators: Treatment: Campo Px, Zosyn 3.375 gm IVPB, Ceftin 500 mg PO BID Consults: Alphonso In your professional opinion, can you please clarify abdominal sepsis? Sepsis Sepsis ruled out Intra-abdominal abscess Other, please specify Unable to determine __ No evidence of sepsis. MTDD
== END 2019-07-13 13:37 | disposition home health service (06) | DRG 329 ==
LOC: EC 10:21 → 6NMEDSUR 12:11 → 5NMEDONC 12:39 → 6NMEDSUR 12:39 → 5NMEDONC 14:24
PROVIDERS: ADMIT Surgery; ATTEND Surgery
DX: K57.20 Diverticulitis of large intestine with perforation and abscess without bleeding (principal); K65.1 Peritoneal abscess; D62 Acute posthemorrhagic anemia; E44.1 Mild protein-calorie malnutrition; E87.1 Hypo-osmolality and hyponatremia; Z16.11 Resistance to penicillins; I25.10 Atherosclerotic heart disease of native coronary artery without angina pectoris; K63.89 Other specified diseases of intestine; F32.9 Major depressive disorder, single episode, unspecified; K21.9 Gastro-esophageal reflux disease without esophagitis; D72.819 Decreased white blood cell count, unspecified; M47.896 Other spondylosis, lumbar region; B95.2 Enterococcus as the cause of diseases classified elsewhere; Z68.20 Body mass index [BMI] 20.0-20.9, adult; Z79.899 Other long term (current) drug therapy; Z87.891 Personal history of nicotine dependence; Z98.890 Other specified postprocedural states; Z95.5 Presence of coronary angioplasty implant and graft; Z82.3 Family history of stroke
CPT/HCPCS: 36410; 36415; 74177; 76937; 80048; 80053; 81003; 82150; 83605; 83690; 85025; 85652; 86140; 87040; 87070; 87075; 87077; 87186; 87205; 88305; 88307; 96361; 96374; 96375; 96376; 99285

== ENCOUNTER → 2020-11-09 | Outpatient (CLI) | payer BC ==
--- NOTE | 2020-11-09 16:00 | CT ---
EXAMINATION TYPE: CT abdomen pelvis w con DATE OF EXAM: 11/09/2020 COMPARISON: None HISTORY: Ventral hernia at stoma site. CT DLP: 705.6 mGycm CONTRAST: CT scan of the abdomen and pelvis is performed with Oral Contrast and with IV Contrast, patient injec janet with 100 mL of Isovue 300. FINDINGS: LUNG BASES-: No visible nodule. No infiltrate. LIVER/GB: No calcified gallstones. No space occupying hepatic lesion. Biliary tree is of normal ca liber. PANCREAS: No inflammation. No distinct mass. SPLEEN: No splenic enlargement. No lesion seen. ADRENALS: 1.5 cm left adrenal nodule. No thickening. KIDNEYS/BLADDER: No hydronephrosis. No nephrolithiasis. No distinct renal mass. Urinary bladder g rossly unremarkable. BOWEL: Normal appendix. Normal bowel caliber. No inflammation. GENITAL ORGANS: No gross abnormality. LYMPH NODES: No greater than 1cm abdominal or pelvic lymph nodes are appreciated. AORTA: No significant abnormality. OSSEOUS STRUCTURES: No significant abnormality is seen. OTHER: Fat-containing Ventral hernia noted measuring 2.1 cm right supraumbilical region. Left periumb ilical region there is an additional fat-containing ventral hernia noted just to the left of midline measuring 1.5 cm. There is a hernia at the site of left lower quadrant previous ostomy which contains only fat. IMPRESSION: 1. Small ventral hernias as discussed above.
== END | disposition home or self-care (01) ==
LOC: RADCTMAIN 13:53
PROVIDERS: ATTEND Surgery
DX: K43.5 Parastomal hernia without obstruction or gangrene (principal)
CPT/HCPCS: 74177; Q9967 ×2

== ENCOUNTER → 2023-01-28 | Outpatient (CLI) | payer BC ==
[2023-01-29 00:32] LABS: LDL Cholesterol,Calculated 27.6 mg/dL (0.0-131.0); VLDL Calculation 14.68 mg/dL (5.00-40.00)
== END | disposition home or self-care (01) ==
LOC: LABWHC1 12:48
PROVIDERS: ATTEND Internal Medicine Cardiovascular Disease
DX: E78.5 Hyperlipidemia, unspecified (principal)
CPT/HCPCS: 36415; 80061